=== PATIENT | female | born 1965 | race Caucasian/White ===

== ENCOUNTER 2018-07-18 13:03 | Inpatient (IN) | payer OTHER ==
--- NOTE | 2018-07-18 13:41 | PDOC ---
History of Present Illness - General Chief Complaint: Respiratory Stated Complaint: COUGH Time Seen by Provider: 07/18/18 13:23 History Source: Patient Exam Limitations: No Limitations - History of Present Illness Initial Comments: 07/18/18 14:09 Pt is a 53yo F with PMH of migraine, kidney stone, htn presenting to ED from Dr. Griffiths's office for possible pneumonia. Pt said she started coughing 6 days ago and it has been getting worse. She denies coughing up phlegm. Pt says that she has been coughing so much that she vomited (NBNB) yesterday. She admits to a fever at home of 100.2, chills, cough, shortness of breath, headache. Denies nausea, diarrhea, dysuria, numbness/tingling. Pt says she feels like she is having one of her kidney stones as well. PCP: [facility] Neurologist: Cole PMH: see hpi PSH: cholecystectomy, stent placement for clot in R eye Meds: see med rec Allergies: ndka Social: quit smoking 2 weeks ago (10 cigarettes/day), denies alcohol, illicit drug use Past History - Past Medical History Allergies/Adverse Reactions: Allergies Allergy/AdvReac Type Severity Reaction Status Date / Time No Known Allergies Allergy Verified 07/18/18 13:54 Home Medications: Ambulatory Orders Acetaminophen with Codeine [Acetaminophen-Cod #4 Tablet] 1 each PO PRN 02/27/16 Lubiprostone [Amitiza] 24 mcg PO DAILY 02/27/16 Omeprazole [Prilosec] 40 mg PO DAILY 02/27/16 clonazePAM [KlonoPIN] 1 mg PO BID 02/27/16 Aspirin [Adult Aspirin Regimen] 81 mg PO DAILY 07/18/18 Clopidogrel Bisulfate [Plavix] 75 mg PO DAILY 07/18/18 Gabapentin 300 mg PO HS 07/18/18 Oxycodone HCl/Acetaminophen [Percocet 5-325 mg Tablet] 1 tab PO Q4H PRN MDD 6 Simvastatin 40 mg PO HS 07/18/18 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) COPD: Yes GI Disorders: Yes (ULCERS, POLYPS) Disorders: Yes (UTI, KIDNEY STONES) HTN: Yes 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 - Surgical History Cholecystectomy: Yes Neurologic Surgery: Yes (1 STENT AND 1 COIL IN BRAIN) - Immunization History Immunization Up to Date: Yes - Suicide/Smoking/Psychosocial Hx Smoking Status: Yes Smoking History: Current every day smoker Have you smoked in the past 12 months: Yes Number of Cigarettes Smoked Daily: 10 Information on smoking cessation initiated: Yes 'Breaking Loose' booklet given: 07/18/18 Hx Alcohol Use: No Drug/Substance Use Hx: No Substance Use Type: Cocaine Hx Substance Use Treatment: No *Physical Exam - Vital Signs Last Vital Signs Temp Pulse Resp BP Pulse Ox 99.1 F 112 H 20 115/93 97 07/18/18 13:04 07/18/18 13:04 07/18/18 13:04 07/18/18 13:04 07/18/18 13:04 - Physical Exam Comments: 07/18/18 14:24 Pt coughing in room. General Appearance: Yes: Nourished, Appropriately Dressed, Mild Distress HEENT: positive: EOMI, ADRIANA, Normal ENT Inspection, TMs Normal, Pharynx Normal. negative: Photophobia, Pharyngeal Erythema, Nasal Congestion, Rhinorrhea Neck: positive: Trachea midline, Supple. negative: Lymphadenopathy (R), Lymphadenopathy (L) Respiratory/Chest: positive: Crackles (bilateral lung calderon), Wheezing ( bilateral lung calderon). negative: Lungs Clear, Normal Breath Sounds, Respiratory Distress, Rales, Rhonchi, Stridor Cardiovascular: positive: Regular Rhythm, S1, S2, Tachycardia. negative: JVD, Murmur Vascular Pulses: Dorsalis-Pedis (R): 2+, Doralis-Pedis (L): 2+ Gastrointestinal/Abdominal: positive: Normal Bowel Sounds, Soft. negative: Distended, Guarding, Rebound, Tenderness Musculoskeletal: positive: Normal Inspection. 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 Griffiths's office for possible pneumonia. DDx: PNA v COPD exacerbation. CXR, CBC, CMP, lactate orderd. Pt given Duoneb and O2 07/18/18 15:51 Labs wnl. No elevated wbc. Lactic still not back yet. Pt reported "feeling the same" after duoneb. Will start on abx, give steroids and admit. 07/18/18 15:57 Pt will be admitted obs under Dr. Calderon. *DC/Admit/Observation/Transfer Diagnosis at time of Disposition: COPD exacerbation - Discharge Dispostion Condition at time of disposition: Fair Decision to Admit order: Yes - Referrals - Patient Instructions - Post Discharge Activity
[2018-07-18] MEDS ORDERED: ALBUTEROL SO4 2.5/IPRATROPIUM 0.5 INH SOL 3 ML VIAL.NEB. NEB ONE (14:23)
[2018-07-18] MEDS: ALBUTEROL SO4 2.5/IPRATROPIUM 0.5 INH SOL 3 ML VIAL.NEB. NEB SCH ×2 (14:26→15:10)
[2018-07-18 14:30] LABS: HEMOGLOBIN 14.4 GM/dl (10.7-15.3); MCH 30.5 pg (25.7-33.7); MCHC 32.7 g/dl (32.0-36.0); MEAN CELL VOLUME 93.2 fl (80-96); MEAN PLT VOLUME 9.1 fl (7.5-11.1); PLATELET COUNT 229 K/MM3 (134-434); RBC 4.72 M/mm3 (3.60-5.2); RDW 12.7 % (11.6-15.6); WHITE BLOOD COUNT 6.7 K/mm3 (4.0-10.8)
[2018-07-18 14:36] LABS: ALBUMIN 4.1 g/dl (3.5-5.0); ALK PHOS 77 U/L (32-92); ANION GAP 6 MMOL/L (8-16); BILIRUBIN,TOTAL 0.7 mg/dl (0.2-1.0); BLOOD UREA NITROGEN 9 mg/dl (7-18); CALCIUM 8.5 mg/dl (8.4-10.2); CHLORIDE 103 mmol/L (98-107); CO2 27 mmol/L (22-28); CREATININE 0.6 mg/dl (0.6-1.3); GLUCOSE,RANDOM 93 mg/dl (74-106); POTASSIUM 4.2 mmol/L (3.5-5.1); SGOT/AST 25 U/L (10-42); SGPT/ALT 29 U/L (10-40); SODIUM 136 mmol/L (136-145); TOT PROT 7.1 g/dl (6.4-8.3)
--- NOTE | 2018-07-18 14:40 | PDOC ---
Attending Attestation - Resident Resident Name: Lyudmila Lee - ED Attending Attestation I have performed the following: I have examined & evaluated the patient, The case was reviewed & discussed with the resident, I agree w/resident's findings & plan - HPI HPI: 07/18/18 14:34 53-year-old female with history of migraines, brain aneurysm, chronic smoker currently at half pack per day with history of pneumonia in the past presents with 6 days of worsening URI symptoms of congestion, now with progressive wet cough and chest congestion with dyspnea and wheezing and generalized weakness. Saw Dr. Griffiths in the office today and was referred to the emergency department for suspected pneumonia. No actual chest pain, no fevers or chills or night sweats or foreign travel. - Physicial Exam PE: 07/18/18 14:38 Tachycardia, O2 sat 97% on room air Active coughing, wet but nonproductive Heart is regular, slight tachycardia Lungs have coarse inspiratory breath sounds at both bases, left worse than right. Scattered expiratory wheezing without prolonged expiration, no accessory muscle use. Abdomen benign, no leg edema - Medical Decision Making 07/18/18 14:39 53-year-old female with history of smoking, question asthma/COPD, presents with 6 days of worsening respiratory symptoms, possible pneumonia. Tachycardia but O2 sat and respiratory rate her currently within normal limits Trial of nebulizers, supplemental oxygen Labs, chest x-ray, EKG Likely antibiotics Will monitor and observation given decline in respiratory status 07/18/18 15:45 still coughing, only slightly improved after nebs. bilateral lower haziness without focal opacity on my prelim review of cxr. will proceed with observation, start steroids for bronchitis/copd exacerbation, add pna given likely underlying lung disease and smoking hx. Heart Score/ECG Review #1 ECG reviewed & interpreted by me at: 14:51 General ECG Interpretation: Sinus Rhythm, Normal Rate (102), Normal Intervals ( qtc 469), No acute ischemic changes (isolated q III)
[2018-07-18 15:04] LABS: PLATELET ESTIMATE ADEQUATE
[2018-07-18] MEDS ORDERED: AZITHROMYCIN IVPB 500 MG in DEXTROSE 5%-WATER - 250 ML IVPB ONE (15:43)
[2018-07-18] MEDS ORDERED: methylPREDNISolone NA SUCC 125 MG/2 ML VIAL IVPB ONE (15:43)
[2018-07-18] MEDS ORDERED: CEFTRIAXONE 1,000 MG in DEXTROSE 5%-WATER - 50 ML IVPB ONE (15:43)
[2018-07-18] MEDS ORDERED: ACETAMINOPHEN 325 MG TABLET (FP) PO PRN ×3 (15:57→16:14)
[2018-07-18] MEDS ORDERED: ALBUTEROL SO4 2.5/IPRATROPIUM 0.5 INH SOL 3 ML VIAL.NEB. NEB PRN (16:00)
[2018-07-18] MEDS ORDERED: SODIUM CHLORIDE 1,000 ML IV SCH (16:00)
[2018-07-18] MEDS ORDERED: cefTRIAXone SODIUM 1 GM VIAL ONE (16:00)
[2018-07-18] MEDS ORDERED: AZITHROMYCIN 500 MG VIAL IVPB ONE (16:00)
[2018-07-18] MEDS ORDERED: methylPREDNISolone NA SUCC 125 MG/2 ML VIAL ONE (16:00)
[2018-07-18 20:26] VITALS: BMI 33.1
[2018-07-18] MEDS: ATORVASTATIN CA 20 MG TABLET (FP) PO SCH (21:22)
[2018-07-18] MEDS: clonazePAM 0.5 MG TABLET PO SCH (21:22)
[2018-07-18] MEDS ORDERED: GABAPENTIN 300 MG CAPSULE (FP) PO SCH (22:00)
--- NOTE | 2018-07-18 22:28 | HP ---
CHIEF COMPLAINT: COUGH PCP: Mae HISTORY OF PRESENT ILLNESS: This is a 53 year old female with a significant past medical history of recent smoking cessation, HTN, migraines who presented to the ED with a 6 day history of cough. Occasionally productive with yellow phlegm. Reports fever 102 at home which prompted her to come to the ED. Had chills, none today. + SOB and wheezing. H/o one episode cough a few years ago which was treated with albuterol MDI but no other use of inhaled medications in the past. ER course was notable for: (1) WBC 6.7 (2) active wheezing, tx with solumedrol 125 IVP and duoneb x 2 (3) CXR with RLL infiltrate Recent Travel: [employer] PAST MEDICAL HISTORY: migraine headaches, chronic back pain, kidney stone, HTN, GI ulcer, polyps, retinal artery occlusion/clot PAST SURGICAL HISTORY: brain coil/stent, retinal artery?, 2012 cholecystectomy 2998 Social History: Smokin/2 PPD since age 13, quit 2 weeks ago Alcohol: pt denies Drugs: pt denies Family History: mother age 74, "tumor on her aorta burst" father age 86, Parkinsons sister age 63, not a smoker Allergies No Known Allergies Allergy (Verified 07/18/18 13:54) HOME MEDICATIONS: 3 Medication Instructions Recorded Acetaminophen with Codeine 1 each PO PRN 02/27/16 [Acetaminophen-Cod #4 Tablet] Lubiprostone [Amitiza] 24 mcg PO DAILY 02/27/16 Omeprazole [Prilosec] 40 mg PO DAILY 02/27/16 clonazePAM [KlonoPIN] 1 mg PO BID 02/27/16 Aspirin [Adult Aspirin Regimen] 81 mg PO DAILY 07/18/18 Clopidogrel Bisulfate [Plavix] 75 mg PO DAILY 07/18/18 Gabapentin 150 mg PO HS 07/18/18 Simvastatin 40 mg PO HS 07/18/18 REVIEW OF SYSTEMS CONSTITUTIONAL: Present: fever, chills Absent: diaphoresis, generalized weakness, malaise, loss of appetite, weight change HEENT: Absent: rhinorrhea, nasal congestion, throat pain, throat swelling, difficulty swallowing, mouth swelling, ear pain, eye pain, visual changes CARDIOVASCULAR: Absent: chest pain, syncope, palpitations, irregular heart rate, lightheadedness , peripheral edema RESPIRATORY: Present: cough, shortness of breath Absent: dyspnea with exertion, orthopnea, wheezing, stridor, hemoptysis GASTROINTESTINAL: Absent: abdominal pain, abdominal distension, nausea, vomiting, diarrhea, constipation, melena, hematochezia GENITOURINARY: Absent: dysuria, frequency, urgency, hesitancy, hematuria, flank pain, genital pain MUSCULOSKELETAL: Absent: myalgia, arthralgia, joint swelling, back pain, neck pain SKIN: Absent: rash, itching, pallor HEMATOLOGIC/IMMUNOLOGIC: Absent: easy bleeding, easy bruising, lymphadenopathy, frequent infections ENDOCRINE: Absent: unexplained weight gain, unexplained weight loss, heat intolerance, cold intolerance NEUROLOGIC: Absent: headache, focal weakness or paresthesias, dizziness, unsteady gait, seizure, mental status changes, bladder or bowel incontinence PSYCHIATRIC: Absent: anxiety, depression, suicidal or homicidal ideation, hallucinations. PHYSICAL EXAMINATION Vital Signs - 24 hr 3 07/18/18 07/18/18 07/18/18 13:04 16:39 19:10 Temperature 99.1 F 99.5 F 98.4 F Pulse Rate 112 H 88 Pulse Rate [ 95 H Left Radial] Respiratory 20 16 20 Rate Blood Pressure 115/93 117/71 Blood Pressure 134/78 [Right Arm] O2 Sat by Pulse 97 94 L 97 Oximetry (%) 3 07/18/18 20:00 Temperature 98.4 F Pulse Rate 84 Pulse Rate [ Left Radial] Respiratory 20 Rate Blood Pressure 106/68 Blood Pressure [Right Arm] O2 Sat by Pulse 94 L Oximetry (%) GENERAL: Awake, alert, and fully oriented, in no acute distress. HEAD: Normal with no signs of trauma. EYES: Pupils equal, round and reactive to light, extraocular movements intact, sclera anicteric, conjunctiva clear. No lid lag. EARS, NOSE, THROAT: Ears normal, nares patent, oropharynx clear without exudates. Moist mucous membranes. NECK: Normal range of motion, supple without lymphadenopathy, JVD, or masses. LUNGS: + wheezing and rhonchi all lung calderon. No accessory muscle use. HEART: Regular rate and rhythm, normal S1 and S2 without murmur, rub or gallop. ABDOMEN: Soft, nontender, not distended, normoactive bowel sounds, no guarding, no rebound, no masses. No hepatomegaly or splenomegaly. MUSCULOSKELETAL: Normal range of motion at all joints. No bony deformities or tenderness. No CVA tenderness. UPPER EXTREMITIES: 2+ pulses, warm, well-perfused. No cyanosis. No clubbing. No peripheral edema. LOWER EXTREMITIES: 2+ pulses, warm, well-perfused. No calf tenderness. No peripheral edema. NEUROLOGICAL: Cranial nerves II-XII intact. Normal speech. Normal gait. PSYCHIATRIC: Cooperative. Good eye contact. Appropriate mood and affect. SKIN: Warm, dry, normal turgor, no rashes or lesions noted, normal capillary refill. Laboratory Results - last 24 hr 3 07/18/18 07/18/18 07/18/18 14:13 14:13 14:13 WBC 6.7 RBC 4.72 Hgb 14.4 Hct 44.0 MCV 93.2 MCH 30.5 MCHC 32.7 RDW 12.7 Plt Count 229 MPV 9.1 Absolute Neuts (auto) 4.6 Neutrophils % No Result Required. Neutrophils % (Manual) 63.0 Lymphocytes % No Result Required. Lymphocytes % (Manual) 27.0 Monocytes % (Manual) 9 Eosinophils % (Manual) 1.0 Platelet Estimate Adequate Sodium 136 Potassium 4.2 Chloride 103 Carbon Dioxide 27 Anion Gap 6 L BUN 9 Creatinine 0.6 Creat Clearance w eGFR > 60 Random Glucose 93 Lactic Acid 1.0 Calcium 8.5 Total Bilirubin 0.7 AST 25 ALT 29 Alkaline Phosphatase 77 Total Protein 7.1 Albumin 4.1 ECG sinus tachycardia vent rate 102, QTC [address]/T wave changes Radiology Reports CXR Impression: Right lower lung atelectasis/infiltrate. Correlation recommended Reported By: Roger Campos MD 07/18/18 0106 ASSESSMENT/PLAN: 53yF with PMH migraine headaches, chronic back pain, kidney stone, HTN, GI ulcer , polyps, retinal artery occlusion/clot presented to the ED with cough x 6 days. Pneumonia/ ? COPD exac - cont ceftriaxone and zithromax - cont solumedrol 40mg Q6h for wheezing - cont duonebs standing, albuterol prn - consider pulmonary consult HTN - BP stable, monitor BP and initiate meds as indicated PUD - home prilosec changed to formulary protonix Pain management-migraine/chronic back pain - home T4 changed to oxy while inpatient DVT PPX - heparin deferred for now, reassess if stay exceeds 48h - ambulation encouraged FEN - NS @ 75cc/hr - BMP in am - regular diet Dispo: pt currently requires further observation for management of her emergent condition. Visit type - Emergency Visit Emergency Visit: Yes ED Registration Date: 07/18/18 Care time: The patient presented to the Emergency Department on the above date and was hospitalized for further evaluation of their emergent condition. - New Patient This patient is new to me today: Yes Date on this admission: 07/18/18 - Critical Care Critical Care patient: No Hospitalist Screening - Colonoscopy Questionnaire Colonoscopy Questionnaire: Colonoscopy Questionnaire - Patient: 50 - 75 years old and never had a screening colonoscopy: No History of colon or rectal polyps, or CA: No History of IBD, Crohn's disease or UC: No History of abdominal radiation therapy as a child: No - Relative: 1 with colon or rectal CA, or polyps at age 60 or younger: No Colon or rectal CA diagnosed at age 45 or younger: No Multiple relatives with colon or rectal CA: No - Outcome: Screening Result: Negative Screen
[2018-07-18] MEDS ORDERED: ALBUTEROL SO4 0.083% IH SOL 2.5 MG/3 ML VIAL.NEB. NEB PRN (22:29)
[2018-07-19] MEDS ORDERED: ALBUTEROL SO4 2.5/IPRATROPIUM 0.5 INH SOL 3 ML VIAL.NEB. NEB ONE (00:16)
[2018-07-19] MEDS ORDERED: methylPREDNISolone NA SUCC 40 MG/1 ML VIAL IVPUSH SCH (03:00)
[2018-07-19] MEDS: methylPREDNISolone NA SUCC 40 MG/1 ML VIAL IVPUSH SCH ×4 (03:19→20:42)
[2018-07-19 08:20] LABS: BASO % 0.1 % (0-2.0); EOS % 0.1 % (0-4.5); HEMATOCRIT 43.1 % (32.4-45.2); HEMOGLOBIN 13.8 GM/dl (10.7-15.3); LYMPH % 19.8 % (8-40); MCH 30.1 pg (25.7-33.7); MEAN PLT VOLUME 9.2 fl (7.5-11.1); MONO % 4.4 % (3.8-10.2); NEUT % 75.6 % (42.8-82.8); PLATELET COUNT 216 K/MM3 (134-434); RBC 4.58 M/mm3 (3.60-5.2); RDW 12.9 % (11.6-15.6); WHITE BLOOD COUNT 3.6 K/mm3 (4.0-10.8)
[2018-07-19 08:33] LABS: ANION GAP 9 MMOL/L (8-16); BLOOD UREA NITROGEN 8 mg/dl (7-18); CALCIUM 8.8 mg/dl (8.4-10.2); CHLORIDE 104 mmol/L (98-107); CO2 28 mmol/L (22-28); CREATININE 0.4 mg/dl (0.6-1.3); GLUCOSE,RANDOM 139 mg/dl (74-106); POTASSIUM 4.3 mmol/L (3.5-5.1); SODIUM 141 mmol/L (136-145)
--- NOTE | 2018-07-19 09:33 | PN ---
Physical Exam: SUBJECTIVE: Patient seen and examined, reports lower back pain and moist cough, denies any chest pain OBJECTIVE: patient is a 53 year old female with a significant past medical history of recent smoking cessation, HTN, retinal artery/occulsion, and migraine. Patient was admitted from the emergency department for right lower lobe PNA. Vital Signs Period Temp Pulse Resp BP Sys/Merchant Pulse Ox Last 24 Hr 98.4 F-99.5 F 84-112 16-20 106-146/68-93 93-97 GENERAL: The patient is awake, alert, and fully oriented, in no acute distress. HEAD: Normal with no signs of trauma. EYES: PERRL, extraocular movements intact, sclera anicteric, conjunctiva clear. No ptosis. ENT: Ears normal, nares patent, oropharynx clear without exudates, moist mucous membranes. NECK: Trachea midline, full range of motion, supple. LUNGS: Breath sounds equal, billateral wheezing to bases with rhonchi, clear to apexes, no crackles, no accessory muscle use. HEART: Regular rate and rhythm, S1, S2 without murmur, rub or gallop. ABDOMEN: Soft, nontender, nondistended, normoactive bowel sounds, no guarding, no rebound, no hepatosplenomegaly, no masses. EXTREMITIES: 2+ pulses, warm, well-perfused, no edema. NEUROLOGICAL: Cranial nerves II through XII grossly intact. Normal speech, gait not observed. PSYCH: Normal mood, normal affect. SKIN: Warm, dry, normal turgor, no rashes or lesions noted Laboratory Results - last 24 hr 07/18/18 07/18/18 07/18/18 14:13 14:13 14:13 WBC 6.7 RBC 4.72 Hgb 14.4 Hct 44.0 MCV 93.2 MCH 30.5 MCHC 32.7 RDW 12.7 Plt Count 229 MPV 9.1 Absolute Neuts (auto) 4.6 Neutrophils % No Result Required. Neutrophils % (Manual) 63.0 Lymphocytes % No Result Required. Lymphocytes % (Manual) 27.0 Monocytes % Monocytes % (Manual) 9 Eosinophils % Eosinophils % (Manual) 1.0 Basophils % Platelet Estimate Adequate Sodium 136 Potassium 4.2 Chloride 103 Carbon Dioxide 27 Anion Gap 6 L BUN 9 Creatinine 0.6 Creat Clearance w eGFR > 60 Random Glucose 93 Lactic Acid 1.0 Calcium 8.5 Total Bilirubin 0.7 AST 25 ALT 29 Alkaline Phosphatase 77 Total Protein 7.1 Albumin 4.1 07/19/18 07/19/18 07:33 07:33 WBC 3.6 L RBC 4.58 Hgb 13.8 Hct 43.1 MCV 94.0 MCH 30.1 MCHC 32.0 RDW 12.9 Plt Count 216 MPV 9.2 Absolute Neuts (auto) 2.7 Neutrophils % 75.6 Neutrophils % (Manual) Lymphocytes % 19.8 Lymphocytes % (Manual) Monocytes % 4.4 Monocytes % (Manual) Eosinophils % 0.1 Eosinophils % (Manual) Basophils % 0.1 Platelet Estimate Sodium 141 Potassium 4.3 Chloride 104 Carbon Dioxide 28 Anion Gap 9 BUN 8 Creatinine 0.4 L Creat Clearance w eGFR > 60 Random Glucose 139 H D Lactic Acid Calcium 8.8 Total Bilirubin AST ALT Alkaline Phosphatase Total Protein Albumin Active Medications Generic Name Dose Route Start Last Admin Trade Name Freq PRN Reason Stop Dose Admin Acetaminophen 650 mg 07/18/18 15:57 Tylenol - PO Q4H PRN PAIN LEVEL 1-5 Acetaminophen 650 mg 07/18/18 16:02 Tylenol - PO Q4H PRN FEVER Albuterol Sulfate 1 amp 07/18/18 22:29 07/18/18 22:00 Ventolin 0.083% Nebulizer Soln - NEB 1 amp Q4H PRN Administration SHORT OF BREATH/WHEEZING Albuterol/Ipratropium 1 amp 07/19/18 08:00 Duoneb - NEB RQID ADAM Aspirin 81 mg 07/19/18 10:00 Ecotrin - PO DAILY [facility] Atorvastatin Calcium 20 mg 07/18/18 22:00 07/18/18 21:22 Lipitor - PO 20 mg HS ADAM Administration Clonazepam 1 mg 07/18/18 22:00 07/18/18 21:22 Klonopin - PO 1 mg BID ADAM Administration Clopidogrel Bisulfate 75 mg 07/19/18 10:00 Plavix - PO DAILY [facility] Gabapentin 200 mg 07/18/18 22:46 Neurontin - PO HS ADAM Guaifenesin 10 ml 07/18/18 16:02 Robitussin Dm - PO Q6H PRN COUGH Azithromycin 250 mls @ 250 mls/hr 07/19/18 10:00 Zithromax 500mg Ivpb (Pre-Docked) IVPB DAILY [facility] Ceftriaxone Sodium 1 gm in 50 mls @ 100 mls/hr 07/19/18 10:00 Rocephin 1gm Ivpb (Pre-Docked) IVPB DAILY [facility] Protocol Sodium Chloride 1,000 mls @ 75 mls/hr 07/18/18 16:00 Normal Saline - IV ASDIR ADAM Methylprednisolone Sodium Succinate 40 mg 07/18/18 22:50 07/19/18 03:19 Solu-Medrol - IVPUSH 40 mg Q6H-IV ADAM Administration Non-Formulary Medication 24 mcg 07/19/18 10:00 Lubiprostone [Amitiza] PO DAILY ADAM Oxycodone HCl 5 mg 07/18/18 16:14 Roxicodone - PO Q4H PRN PAIN 6-10 Pantoprazole Sodium 40 mg 07/19/18 10:00 Protonix - PO DAILY ADAM ASSESSMENT/PLAN: 1) pulm Pneumonia COPD exac - continue ceftriaxone and zithromax, urine antigens ordered - cont solumedrol 40mg Q6h, with standing duonebs and albuterol prn and symbicort - appreciate pulmonary input 2) cardiovascular HTN - BP stable, monitor BP and initiate meds as indicated 3) GI PUD - home prilosec changed to formulary protonix 4) MS hronic back pain - continue oxycodone, patient report back pain, no CVA tenderness noted on exam will order CT spiral of abdomen to rule out renal calculi patient does have a past history in addition to UA and urine culture DVT PPX - heparin deferred for now, reassess if stay exceeds 48h - ambulation encouraged FEN - NS @ 75cc/hr - BMP in am - regular diet Dispo: pt currently requires further observation for management of her emergent condition. Visit type - Emergency Visit Emergency Visit: Yes ED Registration Date: 07/19/18 Care time: The patient presented to the Emergency Department on the above date and was hospitalized for further evaluation of their emergent condition. - New Patient This patient is new to me today: No - Critical Care Critical Care patient: No - Discharge Referral Referred to [facility] No
[2018-07-19] MEDS ORDERED: PATIENT'S OWN MEDICATION (NON-FORMULARY) (Lubiprostone [Amitiza] 24 MCG) PO SCH (10:00)
[2018-07-19] MEDS: oxyCODONE HCL 5 MG TABLET PO PRN ×2 (10:30→21:09)
[2018-07-19] MEDS: CEFTRIAXONE 1 GM/50 ML BAG IVPB SCH (10:32)
[2018-07-19] MEDS: ASPIRIN COATED 81 MG TABLET.EC PO SCH (10:35)
[2018-07-19] MEDS: clonazePAM 0.5 MG TABLET PO SCH ×2 (10:36→21:43)
[2018-07-19] MEDS: PANTOPRAZOLE 40 MG TABLET (FP) PO SCH (10:37)
[2018-07-19] MEDS: CLOPIDOGREL BISULFATE 75 MG TABLET (FP) PO SCH (10:37)
[2018-07-19] MEDS: ALBUTEROL SO4 2.5/IPRATROPIUM 0.5 INH SOL 3 ML VIAL.NEB. NEB SCH ×4 (10:39→20:43)
--- NOTE | 2018-07-19 10:43 | EKG ---
Test Reason : Blood Pressure : / mmHG Vent. Rate : 102 BPM Atrial Rate : 102 BPM P-R Int : 128 ms QRS Dur : 082 ms QT Int : 360 ms P-R-T Axes : 054 -03 056 degrees QTc Int : 469 ms SINUS TACHYCARDIA INFERIOR INFARCT , AGE UNDETERMINED ABNORMAL ECG WHEN COMPARED WITH ECG OF 15-MAY-2012 14:45, VENT. RATE HAS INCREASED BY 36 BPM Confirmed by QUINTEN HUMPHREY, JOHN ([id number]) on 07/19/2018 10:43:32 AM Referred By: Hemant Calderon Confirmed By:JOHN SHIPLEY MD
[2018-07-19] MEDS: AZITHROMYCIN IVPB 250 ML IVPB SCH (10:44)
[2018-07-19] MEDS ORDERED: morphine SULFATE 4 MG/ML VIAL IVPB ONE (12:44)
[2018-07-19] MEDS ORDERED: morphine SULFATE 4 MG/ML VIAL ONE (12:46)
[2018-07-19] MEDS: DOCUSATE SODIUM 100 MG CAPSULE (FP) PO SCH ×2 (15:55→21:10)
--- NOTE | 2018-07-19 17:25 | PN ---
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 MIGRAINES PULMONARY NODULES MEDIASTINAL ADENOPATHY LIKELY REACTIVE TOBACCO ABUSE PLAN IV STEROIDS INHALED BRONCHODILATORS O2 ABX MONITOR PEAK FLOW DVT PROPHYLAXIS PFTS OUTPATIENT YEARLY LOW DOSE CHEST CT FOR LUNG CANCER SCREENING DR AVALOS Problem List - Problems (1) Asthmatic bronchitis with acute exacerbation Code(s): J45.901 - UNSPECIFIED ASTHMA WITH (ACUTE) EXACERBATION (2) COPD exacerbation Code(s): J44.1 - CHRONIC OBSTRUCTIVE PULMONARY DISEASE W (ACUTE) EXACERBATION (3) Lung nodule seen on imaging study Code(s): R91.1 - SOLITARY PULMONARY NODULE (4) Migraine Code(s): G43.909 - MIGRAINE, UNSP, NOT INTRACTABLE, WITHOUT STATUS MIGRAINOSUS (5) Brain aneurysm Code(s): I67.1 - CEREBRAL ANEURYSM, NONRUPTURED
[2018-07-19] MEDS: ATORVASTATIN CA 20 MG TABLET (FP) PO SCH (21:09)
[2018-07-19] MEDS: GABAPENTIN 100 MG CAPSULE (FP) PO SCH (21:09)
[2018-07-19] MEDS: BUDESONIDE/FORMETEROL FUMARATE 160/4.5 mcg INHALER IH SCH (21:12)
[2018-07-20] MEDS: methylPREDNISolone NA SUCC 40 MG/1 ML VIAL IVPUSH SCH ×4 (02:11→21:36)
[2018-07-20] MEDS: oxyCODONE HCL 5 MG TABLET PO PRN ×3 (02:12→12:03)
[2018-07-20] MEDS: guaiFENesin/D-METHORPHAN HB 10 ML UNIT-DOSE CUPS PO PRN ×3 (02:40→23:00)
[2018-07-20] MEDS: DOCUSATE SODIUM 100 MG CAPSULE (FP) PO SCH ×3 (06:16→21:37)
--- NOTE | 2018-07-20 07:13 | PN ---
Progress Note, Physician History of Present Illness: PULMONARY ALERT,LESS CONGESTED,C/O BACK PAIN. + COUGH - Current Medication List Current Medications: Active Medications Acetaminophen (Tylenol -) 650 mg PO Q4H PRN PRN Reason: PAIN LEVEL 1-5 Last Admin: 07/20/18 02:12 Dose: 650 mg Acetaminophen (Tylenol -) 650 mg PO Q4H PRN PRN Reason: FEVER Albuterol Sulfate (Ventolin 0.083% Nebulizer Soln -) 1 amp NEB Q4H PRN PRN Reason: SHORT OF BREATH/WHEEZING Last Admin: 07/18/18 22:00 Dose: 1 amp Albuterol/Ipratropium (Duoneb -) 1 amp NEB RQID [facility] Last Admin: 07/19/18 20:43 Dose: 1 amp Aspirin (Ecotrin -) 81 mg PO DAILY [facility] Last Admin: 07/19/18 10:35 Dose: 81 mg Atorvastatin Calcium (Lipitor -) 20 mg PO [facility] Last Admin: 07/19/18 21:09 Dose: 20 mg Budesonide/Formoterol Fumarate (Symbicort 160/4.5mcg -) 2 puff IH BID [facility] Last Admin: 07/19/18 21:12 Dose: 2 puff Clonazepam (Klonopin -) 1 mg PO BID [facility] Last Admin: 07/19/18 21:43 Dose: 1 mg Clopidogrel Bisulfate (Plavix -) 75 mg PO DAILY [facility] Last Admin: 07/19/18 10:37 Dose: 75 mg Docusate Sodium (Colace -) 100 mg PO TID [facility] Last Admin: 07/20/18 06:16 Dose: 100 mg Gabapentin (Neurontin -) 200 mg PO [facility] Last Admin: 07/19/18 21:09 Dose: 200 mg Guaifenesin (Robitussin Dm -) 10 ml PO Q6H PRN PRN Reason: COUGH Last Admin: 07/20/18 02:40 Dose: 10 ml Azithromycin (Zithromax 500mg Ivpb (Pre-Docked)) 250 mls @ 250 mls/hr IVPB DAILY [facility] Last Admin: 07/19/18 10:44 Dose: 250 mls/hr Ceftriaxone Sodium (Rocephin 1gm Ivpb (Pre-Docked)) 1 gm in 50 mls @ 100 mls/ hr IVPB DAILY [facility]; Protocol Last Admin: 07/19/18 10:32 Dose: 100 mls/hr Sodium Chloride (Normal Saline -) 1,000 mls @ 75 mls/hr IV ASDIR [facility] Last Admin: 07/19/18 18:33 Dose: 75 mls/hr Methylprednisolone Sodium Succinate (Solu-Medrol -) 60 mg IVPUSH Q6H-IV [facility] Last Admin: 07/20/18 02:11 Dose: 60 mg Non-Formulary Medication (Lubiprostone [Amitiza]) 24 mcg PO DAILY [facility] Oxycodone HCl (Roxicodone -) 5 mg PO Q4H PRN PRN Reason: PAIN 6-10 Last Admin: 07/20/18 02:12 Dose: 5 mg Pantoprazole Sodium (Protonix -) 40 mg PO DAILY [facility] Last Admin: 07/19/18 10:37 Dose: 40 mg - Objective Vital Signs: Vital Signs Temperature 98.6 F 07/20/18 06:00 Pulse Rate 61 07/20/18 06:00 Respiratory Rate 20 07/20/18 06:00 Blood Pressure 137/71 07/20/18 06:00 O2 Sat by Pulse Oximetry (%) 94 L 07/20/18 06:00 Constitutional: Yes: Well Nourished, Calm Eyes: Yes: WNL HENT: Yes: WNL Neck: Yes: WNL Cardiovascular: Yes: Regular Rate and Rhythm, S1, S2 Respiratory: Yes: Wheezes (SCATTERED ROGELIO WHEEZES) Gastrointestinal: Yes: Normal Bowel Sounds, Soft Extremities: Yes: WNL Edema: No Labs: CBC, BMP Problem List - Problems (1) Asthmatic bronchitis with acute exacerbation Code(s): J45.901 - UNSPECIFIED ASTHMA WITH (ACUTE) EXACERBATION (2) COPD exacerbation Code(s): J44.1 - CHRONIC OBSTRUCTIVE PULMONARY DISEASE W (ACUTE) EXACERBATION (3) Lung nodule seen on imaging study Code(s): R91.1 - SOLITARY PULMONARY NODULE (4) Migraine Code(s): G43.909 - MIGRAINE, UNSP, NOT INTRACTABLE, WITHOUT STATUS MIGRAINOSUS (5) Brain aneurysm Code(s): I67.1 - CEREBRAL ANEURYSM, NONRUPTURED Assessment/Plan IMP ACUTE ASTHMATIC BRONCHITIS LIKE SECONDARY TO URI HYPOXEMIA LIKELY COPD H/O GALLEY HAND ANEURYSM MIGRAINES PULMONARY NODULES MEDIASTINAL ADENOPATHY LIKELY REACTIVE TOBACCO ABUSE PLAN IV STEROIDS SAME DOSE INHALED BRONCHODILATORS O2 ABX MONITOR PEAK FLOW DVT PROPHYLAXIS PFTS OUTPATIENT YEARLY LOW DOSE CHEST CT FOR LUNG CANCER SCREENING DR AVALOS Problem List - Problems (1) Asthmatic bronchitis with acute exacerbation Code(s): J45.901 - UNSPECIFIED ASTHMA WITH (ACUTE) EXACERBATION (2) COPD exacerbation Code(s): J44.1 - CHRONIC OBSTRUCTIVE PULMONARY DISEASE W (ACUTE) EXACERBATION (3) Lung nodule seen on imaging study Code(s): R91.1 - SOLITARY PULMONARY NODULE (4) Migraine Code(s): G43.909 - MIGRAINE, UNSP, NOT INTRACTABLE, WITHOUT STATUS MIGRAINOSUS (5) Brain aneurysm Code(s): I67.1 - CEREBRAL ANEURYSM, NONRUPTURED
[2018-07-20] MEDS: ALBUTEROL SO4 2.5/IPRATROPIUM 0.5 INH SOL 3 ML VIAL.NEB. NEB SCH ×4 (07:42→21:36)
[2018-07-20 08:10] LABS: HEMATOCRIT 38.8 % (32.4-45.2); HEMOGLOBIN 12.8 GM/dl (10.7-15.3); LYMPH % 7.2 % (8-40); MCH 31.1 pg (25.7-33.7); MEAN CELL VOLUME 94.1 fl (80-96); MONO % 2.8 % (3.8-10.2); PLATELET COUNT 228 K/MM3 (134-434); RBC 4.12 M/mm3 (3.60-5.2); RDW 12.5 % (11.6-15.6); WHITE BLOOD COUNT 12.2 K/mm3 (4.0-10.8)
[2018-07-20] MEDS ORDERED: MAGNESIUM HYDROX 2400MG/30ML ORAL SUSPENSION 30 ML CUP PO PRN (08:27)
[2018-07-20 08:29] LABS: ANION GAP 7 MMOL/L (8-16); BLOOD UREA NITROGEN 11 mg/dl (7-18); CALCIUM 8.8 mg/dl (8.4-10.2); CHLORIDE 105 mmol/L (98-107); CO2 26 mmol/L (22-28); CREATININE 0.5 mg/dl (0.6-1.3); GLUCOSE,RANDOM 162 mg/dl (74-106); PHOSPHOROUS 3.1 mg/dl (2.5-4.6); POTASSIUM 4.2 mmol/L (3.5-5.1); SODIUM 138 mmol/L (136-145)
--- NOTE | 2018-07-20 09:47 | PN ---
Physical Exam: SUBJECTIVE: Patient seen and examined, Patient is ambulatory at Bedside, Patient denies any chest pain reports ongoing back pain after coughing OBJECTIVE:patient is a 53 year old female with a significant past medical history of recent smoking cessation, HTN, retinal artery/occulsion, and migraine. Patient was admitted for emergency department for acute COPD exacerbation Vital Signs Period Temp Pulse Resp BP Sys/Merchant Pulse Ox Last 24 Hr 98.1 F-98.8 F 61-98 18-20 116-137/68-93 91-95 GENERAL: The patient is awake, alert, and fully oriented, in no acute distress. HEAD: Normal with no signs of trauma. EYES: PERRL, extraocular movements intact, sclera anicteric, conjunctiva clear. No ptosis. ENT: Ears normal, nares patent, oropharynx clear without exudates, moist mucous membranes. NECK: Trachea midline, full range of motion, supple. LUNGS: Breath sounds equal, clear to auscultation bilaterally to apexes, diminished to base, no wheezes, no crackles, no accessory muscle use. HEART: Regular rate and rhythm, S1, S2 without murmur, rub or gallop. ABDOMEN: Soft, nontender, nondistended, normoactive bowel sounds, no guarding, no rebound, no hepatosplenomegaly, no masses. EXTREMITIES: 2+ pulses, warm, well-perfused, no edema. NEUROLOGICAL: Cranial nerves II through XII grossly intact. Normal speech, gait not observed. PSYCH: Normal mood, normal affect. SKIN: Warm, dry, normal turgor, no rashes or lesions noted Laboratory Results - last 24 hr 07/19/18 07/20/18 07/20/18 07:30 07:16 07:16 WBC 12.2 H RBC 4.12 Hgb 12.8 Hct 38.8 MCV 94.1 MCH 31.1 MCHC 33.0 RDW 12.5 Plt Count 228 MPV 9.0 Absolute Neuts (auto) 11.0 Neutrophils % 90.0 H Lymphocytes % 7.2 L Monocytes % 2.8 L Eosinophils % 0.0 Basophils % 0.0 Sodium 138 Potassium 4.2 Chloride 105 Carbon Dioxide 26 Anion Gap 7 L BUN 11 Creatinine 0.5 L Creat Clearance w eGFR > 60 Random Glucose 162 H Calcium 8.8 Phosphorus 3.1 Magnesium 2.1 2.0 Active Medications Generic Name Dose Route Start Last Admin Trade Name Freq PRN Reason Stop Dose Admin Acetaminophen 650 mg 07/18/18 15:57 07/20/18 02:12 Tylenol - PO 650 mg Q4H PRN Administration PAIN LEVEL 1-5 Acetaminophen 650 mg 07/18/18 16:02 07/20/18 07:43 Tylenol - PO 650 mg Q4H PRN Administration FEVER Albuterol Sulfate 1 amp 07/18/18 22:29 07/18/18 22:00 Ventolin 0.083% Nebulizer Soln - NEB 1 amp Q4H PRN Administration SHORT OF BREATH/WHEEZING Albuterol/Ipratropium 1 amp 07/19/18 08:00 07/20/18 07:42 Duoneb - NEB 1 amp RQID [facility]AM Administration Aspirin 81 mg 07/19/18 10:00 07/19/18 10:35 Ecotrin - PO 81 mg DAILY [facility] Administration Atorvastatin Calcium 20 mg 07/18/18 22:00 07/19/18 21:09 Lipitor - PO 20 mg HS ADAM Administration Budesonide/Formoterol Fumarate 2 puff 07/19/18 22:00 07/19/18 21:12 Symbicort 160/4.5mcg - IH 2 puff BID ADAM Administration Clonazepam 1 mg 07/18/18 22:00 07/19/18 21:43 Klonopin - PO 1 mg BID ADAM Administration Clopidogrel Bisulfate 75 mg 07/19/18 10:00 07/19/18 10:37 Plavix - PO 75 mg DAILY [facility] Administration Docusate Sodium 100 mg 07/19/18 14:00 07/20/18 06:16 Colace - PO 100 mg TID AD[facility] Administration Gabapentin 200 mg 07/18/18 22:46 07/19/18 21:09 Neurontin - PO 200 mg HS ADAM Administration Guaifenesin 10 ml 07/18/18 16:02 07/20/18 07:43 Robitussin Dm - PO 10 ml Q6H PRN Administration COUGH Azithromycin 250 mls @ 250 mls/hr 07/19/18 10:00 07/19/18 10:44 Zithromax 500mg Ivpb (Pre-Docked) IVPB 250 mls/hr DAILY [facility] Administration Ceftriaxone Sodium 1 gm in 50 mls @ 100 mls/hr 07/19/18 10:00 07/19/18 10:32 Rocephin 1gm Ivpb (Pre-Docked) IVPB 100 mls/hr DAILY [facility] Administration Protocol Lactobacillus Acidophilus 1 tab 07/20/18 10:00 Bacid - PO DAILY [facility] Magnesium Hydroxide 30 ml 07/20/18 08:27 Milk Of Magnesia - PO Q8H PRN INDIGESTION Methylprednisolone Sodium Succinate 60 mg 07/19/18 21:00 07/20/18 02:11 Solu-Medrol - IVPUSH 60 mg Q6H-IV ADAM Administration Non-Formulary Medication 24 mcg 07/19/18 10:00 Lubiprostone [Amitiza] PO DAILY [facility] Oxycodone HCl 5 mg 07/18/18 16:14 07/20/18 07:43 Roxicodone - PO 5 mg Q4H PRN Administration PAIN 6-10 Pantoprazole Sodium 40 mg 07/19/18 10:00 07/19/18 10:37 Protonix - PO 40 mg DAILY [facility] Administration Imaging: CT of chest, left basilar atelectasis no evidence of pulmonary masses or acute consolidation stable pulmonary nodularity,mild mediastinal lymphadenopathy as per radiologist Dr Loera CT spiral, Normal CT scan of abdomen and pelvis no evidence of urinary tract calculi obstructive uropathy or acute pathology as per radiologistDr Loera ASSESSMENT/PLAN: 1) pulm COPD exac - continue ceftriaxone and zithromax - cont solumedrol 60mg Q6h, with standing duonebs and albuterol prn and symbicort - pulmonary input consulted and followed 2) cardiovascular HTN - BP stable, monitor BP and initiate meds as indicated 3) GI PUD - home prilosec changed to formulary protonix 4) MS chronic back pain - reports worsening back pain after coughing increase oxycodone to 10mg, DVT PPX - heparin - ambulation encouraged FEN - BMP in am - regular diet Dispo: pt currently requires inpatient admission for management of her emergent condition. Visit type - Emergency Visit Emergency Visit: Yes ED Registration Date: 07/19/18 Care time: The patient presented to the Emergency Department on the above date and was hospitalized for further evaluation of their emergent condition. - New Patient This patient is new to me today: No - Critical Care Critical Care patient: No - Discharge Referral Referred to [facility] Med P.C.: No
[2018-07-20] MEDS ORDERED: PT OWN MED DRAWER 7, Y5N ONE ×2 (10:30→21:24)
--- NOTE | 2018-07-20 10:46 | CONS ---
DATE OF CONSULTATION: 07/19/2018 REFERRING PHYSICIAN: Isabel Medina NP HISTORY OF PRESENT ILLNESS: The patient is a 53-year-old white female with a past medical history of migraines, history of BUSBOY aneurysms status post clipping 2011, longstanding history of tobacco use approximately 3/4 pack per day for greater than 30 years and still smoking, also history of pneumonia, admitted to [facility] with complaint of 6-day history of increasing URI symptoms, chest congestion, cough. Patient states approximately 6 days ago, she developed cough, chest congestion, and wheezing. Patient had a fever. Symptoms continued worsening over the next few days. She went to see Dr. Griffiths in the office on day of admission and was referred to the emergency room. In the ER, she underwent a CT scan of the chest, which revealed no evidence of pneumonia, revealed mild mediastinal adenopathy. She was started on inhaled bronchodilators and steroids, and transferred out to the medical floor. As stated before, she has a history of tobacco use, quit the day prior to admission. There is no history of recent travel. She has no pets at home. She denies any history of COPD or asthma in the past. PAST MEDICAL HISTORY: Again includes migraines, BUSBOY aneurysms status post clipping. 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 REVIEW OF SYSTEMS: Positive for cough. Positive for shortness of breath. Positive for wheezing. Positive for chest congestion. PHYSICAL EXAMINATION: General: The patient is a well-developed, well-nourished female, awake, alert, in no acute distress. Vital signs: She is afebrile, blood pressure is 116/71, respiratory rate is 18, O2 saturation is 91% on room air. HEENT: Head is normocephalic atraumatic. Neck: Supple. Heart: Regular, S1, S2. Chest: Diffuse bilateral wheezes. Abdomen: Soft. Bowel sounds positive. Extremities: No cyanosis or edema. LABORATORIES: WBC is 3.6, hemoglobin 13.8, hematocrit 43.1, platelet count of 216,000. BUN 8, creatinine 0.4. Chest CT again reveals left basal atelectasis, no acute pneumonia or infiltrates or masses. There is stable pulmonary nodule in the left lower lobe, a 5-mm nodule in the right base, and mild mediastinal adenopathy. IMPRESSION: 1. Acute asthmatic bronchitis likely secondary to viral upper respiratory infection. 2. Pulmonary nodules stable. 3. Mild mediastinal adenopathy, likely reactive. 4. History of tobacco abuse. 5. 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 PLAN: IV steroids, inhaled bronchodilators, supplemental O2, monitor peak flow, continue NicoDerm Patch, pain cultures, yearly low-dose chest CT, lung cancer screening, pulmonary function test as outpatient. LUIS AVALOS M.D. [id number]
[2018-07-20] MEDS: LACTOBACILLUS ACIDOPHILUS 1 TABLET PO SCH (10:50)
[2018-07-20] MEDS: clonazePAM 0.5 MG TABLET PO SCH ×2 (10:51→21:35)
[2018-07-20] MEDS: ASPIRIN COATED 81 MG TABLET.EC PO SCH (10:51)
[2018-07-20] MEDS: PANTOPRAZOLE 40 MG TABLET (FP) PO SCH (10:52)
[2018-07-20] MEDS: CEFTRIAXONE 1 GM/50 ML BAG IVPB SCH (10:52)
[2018-07-20] MEDS: CLOPIDOGREL BISULFATE 75 MG TABLET (FP) PO SCH (10:52)
[2018-07-20] MEDS: BUDESONIDE/FORMETEROL FUMARATE 160/4.5 mcg INHALER IH SCH ×2 (10:53→22:12)
[2018-07-20] MEDS: AZITHROMYCIN IVPB 250 ML IVPB SCH (10:53)
[2018-07-20] MEDS ORDERED: ONDANSETRON 4 MG/2 ML VIAL IVPUSH PRN (11:26)
[2018-07-20] MEDS: GABAPENTIN 100 MG CAPSULE (FP) PO SCH (21:36)
[2018-07-20] MEDS: ATORVASTATIN CA 20 MG TABLET (FP) PO SCH (21:37)
[2018-07-21] MEDS: methylPREDNISolone NA SUCC 40 MG/1 ML VIAL IVPUSH SCH ×4 (03:00→21:15)
[2018-07-21] MEDS: DOCUSATE SODIUM 100 MG CAPSULE (FP) PO SCH ×3 (06:13→21:15)
[2018-07-21 07:28] LABS: PH,URINE 6.5 (4.5-8); URINE APPEARANCE Clear; URINE BILIRUBIN Negative (NEGATIVE); URINE COLOR Yellow; URINE GLUCOSE (UA) Trace (NEGATIVE); URINE KETONE Negative (NEGATIVE); URINE LEUK ESTERASE Negative (NEGATIVE); URINE NITRITE Negative (NEGATIVE); URINE PROTEIN Negative (NEGATIVE); URINE UROBILINOGEN 0.2 (0.2-1.0)
--- NOTE | 2018-07-21 07:35 | PN ---
Progress Note, Physician History of Present Illness: PULMONARY ALERT,FEELING BETTER,LESS CONGESTED - Current Medication List Current Medications: Active Medications Acetaminophen (Tylenol -) 650 mg PO Q4H PRN PRN Reason: PAIN LEVEL 1-5 Last Admin: 07/20/18 02:12 Dose: 650 mg Acetaminophen (Tylenol -) 650 mg PO Q4H PRN PRN Reason: FEVER Last Admin: 07/20/18 07:43 Dose: 650 mg Albuterol Sulfate (Ventolin 0.083% Nebulizer Soln -) 1 amp NEB Q4H PRN PRN Reason: SHORT OF BREATH/WHEEZING Last Admin: 07/18/18 22:00 Dose: 1 amp Albuterol/Ipratropium (Duoneb -) 1 amp NEB RQID [facility] Last Admin: 07/20/18 21:36 Dose: 1 amp Aspirin (Ecotrin -) 81 mg PO DAILY [facility] Last Admin: 07/20/18 10:51 Dose: 81 mg Atorvastatin Calcium (Lipitor -) 20 mg PO [facility] Last Admin: 07/20/18 21:37 Dose: 20 mg Budesonide/Formoterol Fumarate (Symbicort 160/4.5mcg -) 2 puff IH BID [facility] Last Admin: 07/20/18 22:12 Dose: 2 puff Clonazepam (Klonopin -) 1 mg PO BID [facility] Last Admin: 07/20/18 21:35 Dose: 1 mg Clopidogrel Bisulfate (Plavix -) 75 mg PO DAILY [facility] Last Admin: 07/20/18 10:52 Dose: 75 mg Docusate Sodium (Colace -) 100 mg PO TID [facility] Last Admin: 07/21/18 06:13 Dose: Not Given Gabapentin (Neurontin -) 200 mg PO [facility] Last Admin: 07/20/18 21:36 Dose: 200 mg Guaifenesin (Robitussin Dm -) 10 ml PO Q6H PRN PRN Reason: COUGH Last Admin: 07/20/18 23:00 Dose: 10 ml Azithromycin (Zithromax 500mg Ivpb (Pre-Docked)) 250 mls @ 250 mls/hr IVPB DAILY [facility] Last Admin: 07/20/18 10:53 Dose: 250 mls/hr Ceftriaxone Sodium (Rocephin 1gm Ivpb (Pre-Docked)) 1 gm in 50 mls @ 100 mls/ hr IVPB DAILY [facility]; Protocol Last Admin: 07/20/18 10:52 Dose: 100 mls/hr Lactobacillus Acidophilus (Bacid -) 1 tab PO DAILY [facility] Last Admin: 07/20/18 10:50 Dose: 1 tab Magnesium Hydroxide (Milk Of Magnesia -) 30 ml PO Q8H PRN PRN Reason: INDIGESTION Methylprednisolone Sodium Succinate (Solu-Medrol -) 60 mg IVPUSH Q6H-IV [facility] Last Admin: 07/21/18 03:00 Dose: 60 mg Non-Formulary Medication (Lubiprostone [Amitiza]) 24 mcg PO DAILY [facility] Ondansetron HCl (Zofran Injection) 4 mg IVPUSH Q8H PRN PRN Reason: NAUSEA Oxycodone HCl (Roxicodone -) 10 mg PO Q4H PRN PRN Reason: PAIN 6-10 Last Admin: 07/20/18 12:03 Dose: 10 mg Pantoprazole Sodium (Protonix -) 40 mg PO DAILY [facility] Last Admin: 07/20/18 10:52 Dose: 40 mg - Objective Vital Signs: Vital Signs Temperature 98.3 F 07/21/18 06:43 Pulse Rate 71 07/21/18 06:43 Respiratory Rate 20 07/21/18 06:43 Blood Pressure 130/70 07/21/18 06:43 O2 Sat by Pulse Oximetry (%) 94 L 07/21/18 06:43 Constitutional: Yes: Well Nourished, Calm Eyes: Yes: WNL HENT: Yes: WNL Neck: Yes: WNL Cardiovascular: Yes: Regular Rate and Rhythm, S1, S2 Respiratory: Yes: Wheezes (LESS WHEEZES BILATERALLY) Gastrointestinal: Yes: Normal Bowel Sounds, Soft Extremities: Yes: WNL Edema: No Labs: CBC, BMP Problem List - Problems (1) Asthmatic bronchitis with acute exacerbation Code(s): J45.901 - UNSPECIFIED ASTHMA WITH (ACUTE) EXACERBATION (2) COPD exacerbation Code(s): J44.1 - CHRONIC OBSTRUCTIVE PULMONARY DISEASE W (ACUTE) EXACERBATION (3) Lung nodule seen on imaging study Code(s): R91.1 - SOLITARY PULMONARY NODULE (4) Migraine Code(s): G43.909 - MIGRAINE, UNSP, NOT INTRACTABLE, WITHOUT STATUS MIGRAINOSUS (5) Brain aneurysm Code(s): I67.1 - CEREBRAL ANEURYSM, NONRUPTURED Assessment/Plan IMP ACUTE ASTHMATIC BRONCHITIS LIKE SECONDARY TO URI HYPOXEMIA LIKELY COPD H/O CORPORATE EVENT PLANNER ANEURYSM MIGRAINES PULMONARY NODULES MEDIASTINAL ADENOPATHY LIKELY REACTIVE TOBACCO ABUSE PLAN STEROID TAPER INHALED BRONCHODILATORS O2 ABX MONITOR PEAK FLOW DVT PROPHYLAXIS PFTS OUTPATIENT YEARLY LOW DOSE CHEST CT FOR LUNG CANCER SCREENING DR AVALOS Problem List - Problems (1) Asthmatic bronchitis with acute exacerbation Code(s): J45.901 - UNSPECIFIED ASTHMA WITH (ACUTE) EXACERBATION (2) COPD exacerbation Code(s): J44.1 - CHRONIC OBSTRUCTIVE PULMONARY DISEASE W (ACUTE) EXACERBATION (3) Lung nodule seen on imaging study Code(s): R91.1 - SOLITARY PULMONARY NODULE (4) Migraine Code(s): G43.909 - MIGRAINE, UNSP, NOT INTRACTABLE, WITHOUT STATUS MIGRAINOSUS (5) Brain aneurysm Code(s): I67.1 - CEREBRAL ANEURYSM, NONRUPTURED
[2018-07-21] MEDS: CEFTRIAXONE 1 GM/50 ML BAG IVPB SCH (09:18)
[2018-07-21] MEDS: ASPIRIN COATED 81 MG TABLET.EC PO SCH (09:18)
[2018-07-21] MEDS: clonazePAM 0.5 MG TABLET PO SCH ×2 (09:18→21:15)
[2018-07-21] MEDS: LACTOBACILLUS ACIDOPHILUS 1 TABLET PO SCH (09:19)
[2018-07-21] MEDS: oxyCODONE HCL 5 MG TABLET PO PRN ×3 (09:19→18:23)
[2018-07-21] MEDS: CLOPIDOGREL BISULFATE 75 MG TABLET (FP) PO SCH (09:19)
[2018-07-21] MEDS: ALBUTEROL SO4 2.5/IPRATROPIUM 0.5 INH SOL 3 ML VIAL.NEB. NEB SCH ×4 (09:20→19:53)
[2018-07-21] MEDS: AZITHROMYCIN IVPB 250 ML IVPB SCH (09:20)
[2018-07-21] MEDS ORDERED: PT OWN MED DRAWER 7, Y5N ONE (09:27)
[2018-07-21] MEDS: BUDESONIDE/FORMETEROL FUMARATE 160/4.5 mcg INHALER IH SCH ×2 (10:00→21:21)
--- NOTE | 2018-07-21 11:52 | PN ---
Physical Exam: SUBJECTIVE: Patient seen and examined, reports breathing feels slightly improved , denies any chest pain or dyspnea upon exertion. OBJECTIVE: patient is a 53 year old female with a significant past medical history of recent smoking cessation, HTN, retinal artery/occulsion, and migraine. Patient was admitted for emergency department for acute COPD exacerbation Vital Signs Period Temp Pulse Resp BP Sys/Merchant Pulse Ox Last 24 Hr 97.5 F-98.9 F 58-71 18-20 124-141/54-85 92-97 GENERAL: The patient is awake, alert, and fully oriented, in no acute distress. HEAD: Normal with no signs of trauma. EYES: PERRL, extraocular movements intact, sclera anicteric, conjunctiva clear. No ptosis. ENT: Ears normal, nares patent, oropharynx clear without exudates, moist mucous membranes. NECK: Trachea midline, full range of motion, supple. LUNGS: Breath sounds equal, clear to auscultation bilaterally to apexes, diminished to base, no wheezes, no crackles, no accessory muscle use. HEART: Regular rate and rhythm, S1, S2 without murmur, rub or gallop. ABDOMEN: Soft, nontender, nondistended, normoactive bowel sounds, no guarding, no rebound, no hepatosplenomegaly, no masses. EXTREMITIES: 2+ pulses, warm, well-perfused, no edema. NEUROLOGICAL: Cranial nerves II through XII grossly intact. Normal speech, gait not observed. PSYCH: Normal mood, normal affect. SKIN: Warm, dry, normal turgor, no rashes or lesions noted Laboratory Results - last 24 hr 07/21/18 06:30 Urine Color Yellow Urine Appearance Clear Urine pH 6.5 Ur Specific Isabella 1.015 Urine Protein Negative Urine Glucose (UA) Trace Urine Ketones Negative Urine Blood Negative Urine Nitrite Negative Urine Bilirubin Negative Urine Urobilinogen 0.2 Ur Leukocyte Esterase Negative Active Medications Generic Name Dose Route Start Last Admin Trade Name Freq PRN Reason Stop Dose Admin Acetaminophen 650 mg 07/18/18 15:57 07/20/18 02:12 Tylenol - PO 650 mg Q4H PRN Administration PAIN LEVEL 1-5 Acetaminophen 650 mg 07/18/18 16:02 07/20/18 07:43 Tylenol - PO 650 mg Q4H PRN Administration FEVER Albuterol Sulfate 1 amp 07/18/18 22:29 07/18/18 22:00 Ventolin 0.083% Nebulizer Soln - NEB 1 amp Q4H PRN Administration SHORT OF BREATH/WHEEZING Albuterol/Ipratropium 1 amp 07/19/18 08:00 07/21/18 09:20 Duoneb - NEB 1 amp RQID ADAM Administration Aspirin 81 mg 07/19/18 10:00 07/21/18 09:18 Ecotrin - PO 81 mg DAILY AADM Administration Atorvastatin Calcium 20 mg 07/18/18 22:00 07/20/18 21:37 Lipitor - PO 20 mg HS ADAM Administration Budesonide/Formoterol Fumarate 2 puff 07/19/18 22:00 07/20/18 22:12 Symbicort 160/4.5mcg - IH 2 puff BID ADAM Administration Clonazepam 1 mg 07/18/18 22:00 07/21/18 09:18 Klonopin - PO 1 mg BID ADAM Administration Clopidogrel Bisulfate 75 mg 07/19/18 10:00 07/21/18 09:19 Plavix - PO 75 mg DAILY ADAM Administration Docusate Sodium 100 mg 07/19/18 14:00 07/21/18 06:13 Colace - PO Not Given TID ADAM Gabapentin 200 mg 07/18/18 22:46 07/20/18 21:36 Neurontin - PO 200 mg HS ADAM Administration Guaifenesin 10 ml 07/18/18 16:02 07/20/18 23:00 Robitussin Dm - PO 10 ml Q6H PRN Administration COUGH Azithromycin 250 mls @ 250 mls/hr 07/19/18 10:00 07/21/18 09:20 Zithromax 500mg Ivpb (Pre-Docked) IVPB 250 mls/hr DAILY ADAM Administration Ceftriaxone Sodium 1 gm in 50 mls @ 100 mls/hr 07/19/18 10:00 07/21/18 09:18 Rocephin 1gm Ivpb (Pre-Docked) IVPB 100 mls/hr DAILY ADAM Administration Protocol Lactobacillus Acidophilus 1 tab 07/20/18 10:00 07/21/18 09:19 Bacid - PO 1 tab DAILY ADAM Administration Magnesium Hydroxide 30 ml 07/20/18 08:27 Milk Of Magnesia - PO Q8H PRN INDIGESTION Methylprednisolone Sodium Succinate 40 mg 07/21/18 11:22 Solu-Medrol - IVPUSH Q6H-IV ADAM Non-Formulary Medication 24 mcg 07/19/18 10:00 Lubiprostone [Amitiza] PO DAILY ADAM Ondansetron HCl 4 mg 07/20/18 11:26 Zofran Injection IVPUSH Q8H PRN NAUSEA Oxycodone HCl 10 mg 07/20/18 11:21 07/21/18 09:19 Roxicodone - PO 10 mg Q4H PRN Administration PAIN 6-10 Pantoprazole Sodium 40 mg 07/19/18 10:00 07/20/18 10:52 Protonix - PO 40 mg DAILY ADAM Administration Microbiology 07/21/18 06:30 Urine - Urine Clean Catch Legionella Antigen - Final, negative 07/21/18 06:30 Urine - Urine Clean Catch Streptococcus pneumoniae Antigen ( M - Final, negative Imaging: CT of chest, left basilar atelectasis no evidence of pulmonary masses or acute consolidation stable pulmonary nodularity,mild mediastinal lymphadenopathy as per radiologist Dr Loera CT spiral, Normal CT scan of abdomen and pelvis no evidence of urinary tract calculi obstructive uropathy or acute pathology as per radiologistDr Loera ASSESSMENT/PLAN: 1) pulm COPD exac - continue ceftriaxone and zithromax - peak flow and pre and post oxygen - decrease solumedrol 40mg Q6h, with standing duonebs and albuterol prn and symbicort - pulmonary input consulted and followed 2) cardiovascular HTN - BP stable, monitor BP and initiate meds as indicated 3) GI PUD - home prilosec changed to formulary protonix 4) MS chronic back pain - reports improvement in back pain, continue oxycodone to 10mg, DVT PPX - heparin - ambulation encouraged FEN - BMP in am - regular diet Dispo: pt currently requires inpatient admission for management of her emergent condition. Visit type - Emergency Visit Emergency Visit: Yes ED Registration Date: 07/19/18 Care time: The patient presented to the Emergency Department on the above date and was hospitalized for further evaluation of their emergent condition. - New Patient This patient is new to me today: No - Critical Care Critical Care patient: No - Discharge Referral Referred to [facility] Med P.C[facility] No
[2018-07-21] MEDS: PANTOPRAZOLE 40 MG TABLET (FP) PO SCH (13:53)
[2018-07-21] MEDS: ATORVASTATIN CA 20 MG TABLET (FP) PO SCH (21:16)
[2018-07-21] MEDS: GABAPENTIN 100 MG CAPSULE (FP) PO SCH (21:16)
[2018-07-21] MEDS: HEPARIN NA (PORCINE) 5,000 UNITS/ML 1ML VIAL SQ SCH (21:20)
[2018-07-22] MEDS: methylPREDNISolone NA SUCC 40 MG/1 ML VIAL IVPUSH SCH ×3 (03:34→14:45)
[2018-07-22] MEDS: DOCUSATE SODIUM 100 MG CAPSULE (FP) PO SCH ×2 (06:24→13:26)
[2018-07-22 08:34] LABS: BASO % 0.1 % (0-2.0); HEMATOCRIT 38.9 % (32.4-45.2); HEMOGLOBIN 12.7 GM/dl (10.7-15.3); LYMPH % 13.6 % (8-40); MCH 30.4 pg (25.7-33.7); MCHC 32.7 g/dl (32.0-36.0); MEAN CELL VOLUME 93.1 fl (80-96); MEAN PLT VOLUME 9.3 fl (7.5-11.1); MONO % 2.6 % (3.8-10.2); NEUT % 83.7 % (42.8-82.8); PLATELET COUNT 239 K/MM3 (134-434); RBC 4.18 M/mm3 (3.60-5.2); WHITE BLOOD COUNT 8.9 K/mm3 (4.0-10.8)
[2018-07-22] MEDS: clonazePAM 0.5 MG TABLET PO SCH (09:20)
[2018-07-22] MEDS: HEPARIN NA (PORCINE) 5,000 UNITS/ML 1ML VIAL SQ SCH (09:21)
[2018-07-22] MEDS: oxyCODONE HCL 5 MG TABLET PO PRN ×2 (09:21→14:46)
[2018-07-22] MEDS: CEFTRIAXONE 1 GM/50 ML BAG IVPB SCH (09:21)
[2018-07-22] MEDS: ASPIRIN COATED 81 MG TABLET.EC PO SCH (09:21)
[2018-07-22] MEDS: AZITHROMYCIN IVPB 250 ML IVPB SCH (09:22)
[2018-07-22] MEDS: BUDESONIDE/FORMETEROL FUMARATE 160/4.5 mcg INHALER IH SCH (09:22)
[2018-07-22] MEDS: CLOPIDOGREL BISULFATE 75 MG TABLET (FP) PO SCH (09:22)
[2018-07-22] MEDS: PANTOPRAZOLE 40 MG TABLET (FP) PO SCH (09:22)
[2018-07-22] MEDS: ALBUTEROL SO4 2.5/IPRATROPIUM 0.5 INH SOL 3 ML VIAL.NEB. NEB SCH ×2 (09:23→13:02)
[2018-07-22] MEDS: LACTOBACILLUS ACIDOPHILUS 1 TABLET PO SCH (09:23)
[2018-07-22 10:25] LABS: ALBUMIN 3.3 g/dl (3.5-5.0); ALK PHOS 57 U/L (32-92); ANION GAP 10 MMOL/L (8-16); BILIRUBIN,TOTAL 0.5 mg/dl (0.2-1.0); BLOOD UREA NITROGEN 13 mg/dl (7-18); CHLORIDE 106 mmol/L (98-107); CO2 26 mmol/L (22-28); CREATININE 0.5 mg/dl (0.6-1.3); GLUCOSE,RANDOM 133 mg/dl (74-106); SGOT/AST 26 U/L (10-42); SGPT/ALT 37 U/L (10-40); SODIUM 142 mmol/L (136-145); TOT PROT 6.1 g/dl (6.4-8.3)
[2018-07-22] MEDS ORDERED: PT OWN MED DRAWER 7, Y5N ONE ×2 (12:51→15:50)
--- NOTE | 2018-07-22 13:11 | DS ---
Physical Exam: SUBJECTIVE: Patient seen and examined at bedside. Feels better, anxious to go home. Lengthy discussion about smoking cessation. OBJECTIVE: Vital Signs Period Temp Pulse Resp BP Sys/Merchant Pulse Ox Last 24 Hr 97 F-98.3 F 60-72 17-19 147-163/64-89 93-93 PHYSICAL EXAM GENERAL: The patient is awake, alert, and fully oriented, in no acute distress. HEAD: Normal with no signs of trauma. EYES: PERRL, extraocular movements intact, sclera anicteric, conjunctiva clear. ENT: Ears normal, nares patent, oropharynx clear without exudates, moist mucous membranes. NECK: Trachea midline, full range of motion, supple. LUNGS: Breath sounds equal, clear to auscultation bilaterally, no wheezes, no crackles, no accessory muscle use. HEART: Regular rate and rhythm, S1, S2 without murmur, rub or gallop. ABDOMEN: Soft, nontender, nondistended, normoactive bowel sounds, no guarding, no rebound, no hepatosplenomegaly, no masses. EXTREMITIES: 2+ pulses, warm, well-perfused, no edema. NEUROLOGICAL: Cranial nerves II through XII grossly intact. Normal speech, gait not observed. PSYCH: Normal mood, normal affect. SKIN: Warm, dry, normal turgor, no rashes or lesions noted. LABS Laboratory Results - last 24 hr 07/22/18 07/22/18 07:40 07:40 WBC 8.9 RBC 4.18 Hgb 12.7 Hct 38.9 MCV 93.1 MCH 30.4 MCHC 32.7 RDW 13.0 Plt Count 239 MPV 9.3 Absolute Neuts (auto) 7.5 Neutrophils % 83.7 H Lymphocytes % 13.6 Monocytes % 2.6 L Eosinophils % 0.0 Basophils % 0.1 Sodium 142 Potassium 4.0 Chloride 106 Carbon Dioxide 26 Anion Gap 10 BUN 13 Creatinine 0.5 L Creat Clearance w eGFR > 60 Random Glucose 133 H Calcium 9.0 Magnesium 2.0 Total Bilirubin 0.5 AST 26 ALT 37 D Alkaline Phosphatase 57 D Total Protein 6.1 L Albumin 3.3 L HOSPITAL COURSE: Date of Admission:07/19/18 Date of Discharge: 07/22/18 Minutes to complete discharge: 35 Discharge Summary Reason For Visit: PNEUMONIA Current Active Problems Asthmatic bronchitis with acute exacerbation (Acute) Brain aneurysm (Acute) COPD exacerbation (Acute) Migraine (Acute) Condition: Improved - Instructions Diet, Activity, Other Instructions: Several prescriptions have been sent to your pharmacy. One is for prednisone ( pills), take as directed and be sure to finish all the medication. A second prescription is for an albuterol/ventolin inhaler. This is your rescue inhaler that you use when you are short of breath. The other prescription is for Atrovent which is an inhaler that you use everyday. It is strongly recommended you follow up with Dr. Griffiths within one week of your discharge. Tell him of your hospital stay and the new medications you are on. You should get outpatient pulmonary function testing. Return to the emergency department for any new or worsening symptoms. Referrals: Gamaliel Griffiths MD [Staff Physician] - Disposition: HOME - Home Medications Comprehensive Discharge Medication List: Ambulatory Orders Acetaminophen with Codeine [Acetaminophen-Cod #4 Tablet] 1 each PO PRN 02/27/16 Lubiprostone [Amitiza] 24 mcg PO DAILY 02/27/16 Omeprazole [Prilosec] 40 mg PO DAILY 02/27/16 clonazePAM [KlonoPIN] 1 mg PO BID 02/27/16 Aspirin [Adult Aspirin Regimen] 81 mg PO DAILY 07/18/18 Clopidogrel Bisulfate [Plavix] 75 mg PO DAILY 07/18/18 Gabapentin 300 mg PO HS 07/18/18 Oxycodone HCl/Acetaminophen [Percocet 5-325 mg Tablet] 1 tab PO Q4H PRN MDD 6 Simvastatin 40 mg PO HS 07/18/18 This patient is new to me today: Yes Date on this admission: 07/22/18 Emergency Visit: Yes ED Registration Date: 07/19/18 Care time: The patient presented to the Emergency Department on the above date and was hospitalized for further evaluation of their emergent condition. Critical Care patient: No - Discharge Referral Referred to [facility] Med [facility] Yes Physician Referral: Gamaliel Wall MD ([facility])
[2018-07-22 14:38] VITALS: BP 143/68; PULSE 73; TEMP 98.8
== END 2018-07-22 16:55 | disposition home or self-care (01) | DRG 194 ==
LOC: FER 13:03 → FM/S 18:17 → OBSVTOIN 07-19 17:12
PROVIDERS: ADMIT Internal Medicine; ATTEND Nurse Practitioner Acute Care
DX: J18.9 Pneumonia, unspecified organism (principal); J44.1 Chronic obstructive pulmonary disease with (acute) exacerbation; J45.901 Unspecified asthma with (acute) exacerbation; J98.11 Atelectasis; I10 Essential (primary) hypertension; G43.909 Migraine, unspecified, not intractable, without status migrainosus; F17.210 Nicotine dependence, cigarettes, uncomplicated; I69.812 Visuospatial deficit and spatial neglect following other cerebrovascular disease; K27.9 Peptic ulcer, site unspecified, unspecified as acute or chronic, without hemorrhage or perforation; M54.5 Low back pain; R09.02 Hypoxemia; R91.8 Other nonspecific abnormal finding of lung field; I67.1 Cerebral aneurysm, nonruptured
CPT/HCPCS: 36415; 71046-TC-FY; 71250-TC; 74176; 80048; 80053; 81003; 83605; 83735; 84100; 85025; 87086; 87899; 93005; 94640; 99283-25; G0378; J1644; J7030; J7620

== ENCOUNTER 2018-08-07 16:50 | Emergency (ER) | payer OTHER ==
--- NOTE | 2018-08-07 17:27 | PDOC ---
Rapid Medical Evaluation Time Seen by Provider: 08/07/18 17:22 Medical Evaluation: Allergies Allergy/AdvReac Type Severity Reaction Status Date / Time No Known Allergies Allergy Verified 07/18/18 13:54 08/07/18 17:22 Patient had a brief in-person assessment of this patient The patient presents with a chief complaint of: elevated blood pressure with headache. States sent from pmd for further evaluation. Recently started on htn medication 2 weeks ago. Pertinent physical findings are: NAD even and unlabored breathing no pedal edema PERRL, EOMI. no drooping in face I have ordered the following: analgesia This patient will proceed to the ED for further evaluation.
[2018-08-07] MEDS ORDERED: ACETAMINOPHEN 325 MG TABLET (FP) PO ONE (17:30)
[2018-08-07 17:38] VITALS: BMI 33.1
--- NOTE | 2018-08-07 17:45 | PDOC ---
History of Present Illness - History of Present Illness Initial Comments: The patient is a 53F with a history of cerebral aneurysm/coil (Plavix), L partial vision loss, who presents from clinic for evaluation of acute HTN to the SBP to 180s with associated L sided headache. The patient denies history of headaches. On arrival to the Emergency Depart the patient was normotensive (130s /80s), nontachycardic, and saturating well on room air. Recently received 'shot in back' for pain Recently started with new BP medication when she started to feel dizzy/ lightheaded. She does not know the name of the BP medication 08/07/18 17:43 <Jay Mast - Last Filed: 08/07/18 19:04> <Blanca Lee - Last Filed: 08/07/18 21:14> - General Chief Complaint: Lightheaded Stated Complaint: PCP SENT/BLOOD PRESSURE PROBLEM Time Seen by Provider: 08/07/18 17:22 Past History - Past Medical History 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) COPD: Yes GI Disorders: Yes (ULCERS, POLYPS) Disorders: Yes (UTI, KIDNEY STONES) HTN: Yes - Surgical History Cholecystectomy: Yes Neurologic Surgery: Yes (1 STENT AND 1 COIL IN BRAIN) - Immunization History Immunization Up to Date: Yes - Suicide/Smoking/Psychosocial Hx Smoking Status: Yes Smoking History: Current every day smoker Have you smoked in the past 12 months: Yes Number of Cigarettes Smoked Daily: 3 Information on smoking cessation initiated: Yes 'Breaking Loose' booklet given: 07/18/18 Hx Alcohol Use: No Drug/Substance Use Hx: No Substance Use Type: Cocaine Hx Substance Use Treatment: No <Jay Mast - Last Filed: 08/07/18 19:04> <Blanca Lee - Last Filed: 08/07/18 21:14> - Past Medical History Allergies/Adverse Reactions: Allergies Allergy/AdvReac Type Severity Reaction Status Date / Time No Known Allergies Allergy Verified 08/07/18 17:23 Home Medications: Ambulatory Orders Lubiprostone [Amitiza] 24 mcg PO DAILY 02/27/16 Omeprazole [Prilosec] 40 mg PO DAILY 02/27/16 clonazePAM [KlonoPIN] 0.5 mg PO BID 02/27/16 Aspirin [Adult Aspirin Regimen] 81 mg PO DAILY 07/18/18 Clopidogrel Bisulfate [Plavix] 75 mg PO DAILY 07/18/18 Gabapentin 300 mg PO HS 07/18/18 Simvastatin 40 mg PO HS 07/18/18 Albuterol Sulfate Inhaler - [Ventolin HFA Inhaler -] 2 inh PO Q4H PRN 30 Days # 1 inh 07/22/18 Ipratropium [place] [Atrovent Hfa] 2 puff IH BID 30 Days #1 hfa.aer.ad 07/22/18 Lisinopril 10 mg PO DAILY 08/07/18 Review of Systems - Review of Systems Able to Perform ROS?: Yes Comments:: GENERAL/CONSTITUTIONAL: No fever or chills. No weakness HEAD, EYES, EARS, NOSE AND THROAT: No acute change in vision. No ear pain or discharge. No sore throat CARDIOVASCULAR: No chest pain or shortness of breath RESPIRATORY: No cough, wheezing, or hemoptysis GASTROINTESTINAL: No nausea, vomiting, diarrhea or constipation GENITOURINARY: No dysuria, frequency, or change in urination MUSCULOSKELETAL: Chronic back pain. No joint or muscle swelling or pain SKIN: No rash NEUROLOGIC: No vertigo, loss of consciousness, or change in strength/sensation ENDOCRINE: No increased thirst. No abnormal weight change HEMATOLOGIC/LYMPHATIC: No anemia, easy bleeding, or history of blood clots ALLERGIC/IMMUNOLOGIC: No hives or skin allergy 08/07/18 18:54 Is the patient limited Pashto proficient: No <Jay Mast - Last Filed: 08/07/18 19:04> *Physical Exam - Vital Signs Last Vital Signs Temp Pulse Resp BP Pulse Ox 99.1 F 102 H 18 122/66 99 08/07/18 17:25 08/07/18 17:25 08/07/18 17:25 08/07/18 17:25 08/07/18 17:25 - Physical Exam Comments: GENERAL: Awake, alert, and fully oriented, in no acute distress HEAD: No signs of trauma, normocephalic, atraumatic EYES: PERRLA, EOMI, vision grossly intact, decreased vision with L lateral field , sclera anicteric, conjunctiva clear ENT: Auricles normal inspection, hearing grossly normal, nares patent, oropharynx clear without exudates. Moist mucosa NECK: Normal ROM, supple, no lymphadenopathy LUNGS: No distress, speaks full sentences, clear to auscultation bilaterally HEART:Regular rate and rhythm, normal S1 and S2, no murmurs appreciated, peripheral pulses normal and equal bilaterally ABDOMEN: Soft, nontender, normoactive bowel sounds. No guarding, no rebound EXTREMITIES : Normal inspection, Normal range of motion, 1+ BLE edema. No clubbing or cyanosis NEUROLOGICAL: Cranial nerves II through XII grossly intact. Normal speech, normal gait, no focal sensorimotor deficits SKIN: Warm, Dry, normal turgor, no rashes or lesions noted 08/07/18 18:53 <Jay Mast - Last Filed: 08/07/18 19:04> - Vital Signs Last Vital Signs Temp Pulse Resp BP Pulse Ox 98.2 F 92 H 20 134/80 96 08/07/18 19:10 08/07/18 19:10 08/07/18 19:10 08/07/18 19:10 08/07/18 19:10 <Blanca Lee - Last Filed: 08/07/18 21:14> ED Treatment Course - LABORATORY CBC & Chemistry Diagram: 08/07/18 18:11 08/07/18 18:11 <Jay Mast - Last Filed: 08/07/18 19:04> - LABORATORY CBC & Chemistry Diagram: 08/07/18 18:11 08/07/18 18:53 - ADDITIONAL ORDERS Additional order review: Laboratory Results 08/07/18 08/07/18 08/07/18 18:53 18:11 18:11 Sodium 147 H Cancelled Potassium 4.1 Cancelled Chloride 110 H Cancelled Carbon Dioxide 27 Cancelled Anion Gap 10 Cancelled BUN 13 Cancelled Creatinine 0.6 Cancelled Creat Clearance w eGFR > 60 Cancelled Random Glucose 108 H Cancelled Calcium 9.1 Cancelled Total Bilirubin 0.3 Cancelled AST 17 Cancelled ALT 33 Cancelled Alkaline Phosphatase 87 Cancelled Total Protein 7.3 Cancelled Albumin 3.9 Cancelled Urine Color Dkyellow Urine Appearance Cloudy Urine pH 5.0 Ur Specific [place] 1.028 Urine Protein 1+ H Urine Glucose (UA) Negative Urine Ketones Trace H Urine Blood Negative Urine Nitrite Negative Urine Bilirubin Negative Urine Urobilinogen 2.0 H Ur Leukocyte Esterase Trace Urine WBC (Auto) 3 Urine RBC (Auto) 3 Ur Epithelial Cells Few Urine Mucus Many 08/07/18 18:11 RBC 4.55 MCV 92.3 MCHC 32.8 RDW 13.9 MPV 8.8 - Medications Given in the ED: ED Medications Discontinued Medications Generic Name Dose Route Start Last Admin Trade Name Ernesto PRN Reason Stop Dose Admin Acetaminophen 650 mg 08/07/18 17:30 08/07/18 18:05 Tylenol - PO 08/07/18 17:31 650 mg ONCE ONE Administration <Blanca Lee - Last Filed: 08/07/18 21:14> Medical Decision Making - Medical Decision Making The patient is a 53F with a history of HTN, L partial vision loss, and L sided aneurysm who presents from clinic for evaluation of HTN and JONES. Ddx: HTN urgency, JONES, recent BP change, CVA ED Course CMP, CBC, UA ECG CT Head w/o contrast for evaluation of bleed No leukocytosis Dispo pending CT UA with trace LE, no dsyuria, not likely UTI 08/07/18 18:42 Patient signed out to Dr. Camarena, patient presentation, care, and plan to this point discussed and all questions answered 08/07/18 19:04 <Jay Mast - Last Filed: 08/07/18 19:04> *DC/Admit/Observation/Transfer <Jay Mast - Last Filed: 08/07/18 19:04> <Blanca Lee - Last Filed: 08/07/18 21:14> Diagnosis at time of Disposition: Headache Qualifiers: Headache type: unspecified Headache chronicity pattern: unspecified pattern Intractability: not intractable Qualified Code(s): R51 - Headache - Discharge Dispostion Disposition: HOME Condition at time of disposition: Stable - Referrals Referrals: Gamaliel Griffiths MD [Primary Care Provider] - - Patient Instructions Printed Discharge Instructions: DI for Headache Additional Instructions: Follow up with your physician - Post Discharge Activity
[2018-08-07] MEDS ORDERED: ACETAMINOPHEN 325 MG TABLET (FP) ONE (18:18)
[2018-08-07 18:24] LABS: HEMOGLOBIN 13.8 GM/dL (10.7-15.3); MCH 30.2 pg (25.7-33.7); MCHC 32.8 g/dl (32.0-36.0); MEAN CELL VOLUME 92.3 fl (80-96); MEAN PLT VOLUME 8.8 fl (7.5-11.1); PLATELET COUNT 235 K/MM3 (134-434); RBC 4.55 M/mm3 (3.60-5.2); RDW 13.9 % (11.6-15.6)
[2018-08-07 18:26] LABS: URINE APPEARANCE CLOUDY; URINE BILIRUBIN NEGATIVE (<2.0 mg/dL); URINE COLOR DKYELLOW; URINE GLUCOSE (UA) NEGATIVE (NEGATIVE); URINE KETONE TRACE (NEGATIVE); URINE LEUK ESTERASE TRACE (NEGATIVE); URINE NITRITE NEGATIVE (NEGATIVE)
[2018-08-07 18:40] LABS: URINE PROTEIN 1+ (NEGATIVE)
[2018-08-07 18:41] LABS: EPI CELLS FEW /HPF (FEW); URINE MUCUS MANY
--- NOTE | 2018-08-07 18:45 | PDOC ---
Attending Attestation - Resident Resident Name: Jay Mast - ED Attending Attestation I have performed the following: I have examined & evaluated the patient, The case was reviewed & discussed with the resident, I agree w/resident's findings & plan, Exceptions are as noted - HPI HPI: 08/07/18 18:44 33-year-old female presented to the emergency department because of lightheadedness today. She has a significant past medical history of having a brain aneurysm with a stent and coil done. She recently was started on a new blood pressure medication and was seen by her pain doctor today received a shot to her back - Physicial Exam PE: 08/07/18 18:45 53-year-old female, standing up next to her bed, stating that she has some lightheadedness today and became concerned because she's had a history of brain aneurysm in the past. Head normocephalic, atraumatic. eyes eomi Neck no JVD or bruits appreciated, supple lungs cta b/l cvs [id number] ext no erythema,no deformities skin warm and dry neuro axox3,ambulatory psych appropriate - Medical Decision Making 08/07/18 18:[address] head 08/07/18 21:09 CAT scan of the head impression No CT evidence of acute intracranial pathology Left cavernous/ supraclonoid internal carotid artery stent in place Prior Studies. Paranasal Sinus Disease. Since Her Cranial MRI 2016. there has been an Interval Development of Some Moderate Mucosal Thickening Is Seen in the Right Maxillary Sinus Consistent with Sinusitis, Which May Be Acute or chronic labs reviewed pt is ambulating with ease and asymptomatic at thsi time imp headache
[2018-08-07 19:50] LABS: ALBUMIN 3.9 g/dl (3.4-5.0); ANION GAP 10 MMOL/L (8-16); BILIRUBIN,TOTAL 0.3 mg/dL (0.2-1); BLOOD UREA NITROGEN 13 mg/dL (7-18); CALCIUM 9.1 mg/dL (8.5-10.1); CHLORIDE 110 mmol/L (98-107); CO2 27 mmol/L (21-32); CREATININE 0.6 mg/dL (0.55-1.3); GLUCOSE,RANDOM 108 mg/dL (74-106); POTASSIUM 4.1 mmol/L (3.5-5.1); SGOT/AST 17 U/L (15-37); SGPT/ALT 33 U/L (13-61); SODIUM 147 mmol/L (136-145); TOT PROT 7.3 g/dl (6.4-8.2)
[2018-08-07 19:51] LABS: ALK PHOS 87 U/L (45-117)
[2018-08-07 20:45] VITALS: BP 134/80; PULSE 92; TEMP 98.2
[2018-08-07] MEDS ORDERED: clonazePAM 0.5 MG TABLET PO ONE (21:18)
[2018-08-07] MEDS ORDERED: clonazePAM 0.5 MG TABLET ONE (21:21)
--- NOTE | 2018-08-08 16:44 | EKG ---
Test Reason : Blood Pressure : / mmHG Vent. Rate : 090 BPM Atrial Rate : 090 BPM P-R Int : 136 ms QRS Dur : 074 ms QT Int : 380 ms P-R-T Axes : 044 -13 038 degrees QTc Int : 464 ms NORMAL SINUS RHYTHM NORMAL ECG WHEN COMPARED WITH ECG OF 18-JUL-2018 14:51, NO SIGNIFICANT CHANGE WAS FOUND Confirmed by Geovani Anderson ([id number]) on 08/08/2018 4:43:43 PM Referred By: Confirmed By:Geovani Anderson
== END 2018-08-07 21:19 | disposition home or self-care (01) ==
LOC: JER 16:50
DX: R51 Headache (principal); I10 Essential (primary) hypertension; H54.7 Unspecified visual loss; Z87.440 Personal history of urinary (tract) infections; Z86.73 Personal history of transient ischemic attack (TIA), and cerebral infarction without residual deficits; J44.9 Chronic obstructive pulmonary disease, unspecified; F17.210 Nicotine dependence, cigarettes, uncomplicated
CPT/HCPCS: 36415; 70450-TC; 80053; 81003; 81015; 85027; 93005; 93010; 99285-25

== ENCOUNTER 2019-03-15 13:57 | Emergency (ER) | payer OTHER ==
[2019-03-15 14:11] VITALS: BMI 30.4
[2019-03-15] MEDS ORDERED: METOCLOPRAMIDE HCL INJECTION 10 MG/2 ML VIAL IVPUSH ONE (14:33)
[2019-03-15] MEDS ORDERED: SODIUM CHLORIDE 1,000 ML IV ONE (14:33)
[2019-03-15] MEDS ORDERED: METOCLOPRAMIDE HCL INJECTION 10 MG/2 ML VIAL ONE (14:57)
[2019-03-15 15:03] LABS: BASO % 0.7 % (0-2.0); EOS % 1.6 % (0-4.5); HEMATOCRIT 37.8 % (32.4-45.2); HEMOGLOBIN 12.7 GM/dl (10.7-15.3); MCH 31.8 pg (25.7-33.7); MCHC 33.5 g/dl (32.0-36.0); MEAN CELL VOLUME 94.8 fl (80-96); MEAN PLT VOLUME 9.2 fl (7.5-11.1); MONO % 4.9 % (3.8-10.2); NEUT % 62.8 % (42.8-82.8); PLATELET COUNT 233 K/MM3 (134-434); RBC 3.99 M/mm3 (3.60-5.2); RDW 13.2 % (11.6-15.6)
[2019-03-15 15:47] VITALS: BP 112/61; PULSE 63; TEMP 98.3
[2019-03-15 16:35] LABS: ALBUMIN 3.8 g/dl (3.4-5.0); ALK PHOS 70 U/L (45-117); ANION GAP 6 MMOL/L (8-16); BILIRUBIN,TOTAL 0.5 mg/dl (0.2-1); BLOOD UREA NITROGEN 13 mg/dl (7-18); CALCIUM 8.3 mg/dl (8.5-10); CHLORIDE 111 mmol/L (98-107); CO2 22 mmol/L (21-32); GLUCOSE,RANDOM 121 mg/dl (74-106); POTASSIUM 3.8 mmol/L (3.5-5.1); SGOT/AST 18 U/L (15-37); SGPT/ALT 16 U/L (13-61); SODIUM 139 mmol/L (136-145)
[2019-03-15 16:36] LABS: CREATININE < 0.6 mg/dl (0.55-1.3)
--- NOTE | 2019-03-15 17:02 | PDOC ---
Documentation entered by Cat Espinal SCRIBE, acting as scribe for Seferino Nails MD. Seferino Nails MD: This documentation has been prepared by the haroonibeTeddy Lincy, SCRIBE, under my direction and personally reviewed by me in its entirety. I confirm that the documentation accurately reflects all work, treatment, procedures, and medical decision making performed by me. History of Present Illness - General Chief Complaint: Headache Stated Complaint: RIGHT SIDE OF HEADACHE FOR 1 MONTH Time Seen by Provider: 03/15/19 14:24 History Source: Patient Exam Limitations: No Limitations - History of Present Illness Initial Comments: 03/15/19 15:46 The patient is a 53-year-old female with a past medical history significant for hx of migraines, chronic back pain, hx of kidney stone, HTN, GI ulcer, polyps, cerebral aneurysm/coil, L partial vision loss presents to the emergency department with a headache. The patient presents with 3 months of constant right headache, thats worse on the right side. The patient reports the pain is constant and pounding in nature, thats aggravated with light and during night time. The patient reports associated symptoms some shadows and occasional blurriness on her R eye, with diffuse weakness to the whole body, nausea . The patient reports a history of left-sided cerebral aneurysm s/p coil. The patient states she was seen at [facility] ER for a lip infection, secondary to hx of aneurysm she had an MRI done. The patient isnt sure of the result. The patient reports she was dx with cluster JONES by the ER physician. Denies numbness , tingling, fever, cough, chest pain or SOB. Allergies: NKDA Social history: Current smoker, hx of coacine use, no alcohol use reported Surgical history: cholecystectomy and brain coil/stent, retinal artery?, 2011 PCP: Dr. Griffiths. Neurology: Dr. Burgos (last follow up was about a year ago, denies recent follow up secondary to insurance issues. Past History - Past Medical History Allergies/Adverse Reactions: Allergies Allergy/AdvReac Type Severity Reaction Status Date / Time No Known Allergies Allergy Verified 03/15/19 13:58 Home Medications: Ambulatory Orders Lubiprostone [Amitiza] 8 mcg PO BID 02/27/16 Omeprazole [Prilosec] 40 mg PO DAILY 02/27/16 clonazePAM [KlonoPIN] 1 mg PO BID 02/27/16 Gabapentin 100 mg PO TID 07/18/18 Simvastatin 40 mg PO HS 07/18/18 Ipratropium [place] [Atrovent Hfa] 2 puff IH BID 30 Days #1 hfa.aer.ad 07/22/18 Acetaminophen with Codeine [Acetaminophen-Cod #4 Tablet] 1 tab PO PRN 03/15/19 Aspirin 81 mg PO DAILY 03/15/19 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) COPD: Yes DVT: No GI Disorders: Yes (ULCERS, POLYPS) Disorders: Yes (UTI, KIDNEY STONES) HTN: Yes Other medical history: PNEUMONIA - Surgical History Cholecystectomy: Yes Neurologic Surgery: Yes (1 STENT AND 1 COIL IN BRAIN) - Immunization History Immunization Up to Date: Yes - Suicide/Smoking/Psychosocial Hx Smoking Status: Yes Smoking History: Current every day smoker Have you smoked in the past 12 months: Yes Number of Cigarettes Smoked Daily: 15 Information on smoking cessation initiated: Yes 'Breaking Loose' booklet given: 07/18/18 Hx Alcohol Use: No Drug/Substance Use Hx: No Substance Use Type: Cocaine Hx Substance Use Treatment: No Review of Systems - Review of Systems Able to Perform ROS?: Yes Comments:: 03/15/19 15:47 Constitutional - +weakness, Denies fever, chills. HEENT: + right eye blurriness and photophobia. No sore throat Respiratory: Denies cough, sob, hemoptysis Cardiac: denies chest pain, palpitations, lightheadedness, leg swelling Abd/GI: +nausea, denies abd pain, vomiting, blood per rectum, melena, diarrhea : denies dysuria, frequency, discharge Musculskelatal - denies back pain, joint swelling skin - denies bruising, erythema, rash neurological: +headache. Denies numbness, focal weakness, tingling, ataxia, weakness hematologic: denies anemia, easy bruising, easy bleeding *Physical Exam - Vital Signs Last Vital Signs Temp Pulse Resp BP Pulse Ox 97.9 F 72 16 123/75 99 03/15/19 13:58 03/15/19 13:58 03/15/19 13:58 03/15/19 13:58 03/15/19 13:58 - Physical Exam Comments: 03/15/19 15:54 "GENERAL: The patient is awake, alert, and fully oriented, Nontoxic - in no acute distress. HEAD: Normocephalic, atraumatic. EYES: extraocular movements intact, sclera anicteric, conjunctiva clear. ENT: Normal voice, Moist mucous membranes. NECK: Normal range of motion, supple LUNGS: Breath sounds equal, clear to auscultation bilaterally. No wheezes, no rhonchi, no rales. HEART: Regular rate and rhythm, without murmur, rub or gallop. ABDOMEN: Soft, nontender, No guarding, no rebound.No CVA tenderness EXTREMITIES: Normal range of motion, no edema. No cyanosis. No erythema, or tenderness. PSYCH: Normal mood, normal affect. SKIN: Warm, Dry, normal turgor. NEURO: Mental status: The patient is oriented x3. Cranial nerves: Cranial nerves II through XII are intact Motor: The upper extremities are 5 over 5 in all muscle groups. The lower extremities are 5 over 5 in all muscle groups. No pronator drift. Sensation: Sensation is intact to light touch throughout. Neg romberg Cerebellar: [id number] is normal in both upper extremities. Heel-knee- santamaria is normal in both lower extremities. Reflexes: 2+ and symmetric in the upper and lower extremities. Gait: Normal. Heel and toe walking are normal. Tandem gait is normal." ED Treatment Course - LABORATORY CBC & Chemistry Diagram: 03/15/19 14:53 03/15/19 15:45 Medical Decision Making - Medical Decision Making 03/15/19 14:46 50y F hx of htn, past CVA, COPD, renal colic presents to the ED with several months of R sided pounding headache associated with some visual changes/ fashing. endorses photophobia, mild nausea. Went to [facility] 1-2 months ago and had a MRI and was dx with cluster headaches. pt well appaering, in no distress neuro exam unremarkble suspect migraine h/a will give reglan, fluids 03/15/19 15:18 A call placed to [facility] ER, spoke with an ER physician at 2:47 pm. The physician reports she had a CT head and MRI and was normal. 03/15/19 16:42 labs reviewed pt feeling improved with complete resolution of headache and other symptmos. 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 Make sure you are getting adaqute sleep and hydration. You MUST call and follow up with your doctor or neurologist within 4-5 days for further evaluation of your symptoms. Your emergency department visit is not complete without a followup with your doctor for reevaluation. Results were discussed with you. Please make sure your doctor reviews the results of your emergency evaluation. Print Language: SOUTH AFRICAN - Post Discharge Activity
== END 2019-03-15 16:50 | disposition home or self-care (01) ==
LOC: FER 13:57
PROC: 3E033GC Introduction of Other Therapeutic Substance into Peripheral Vein, Percutaneous Approach (ICD-10-PCS; principal; 2019-03-15)
PROC: 3E0337Z Introduction of Electrolytic and Water Balance Substance into Peripheral Vein, Percutaneous Approach (ICD-10-PCS; 2019-03-15)
DX: G44.51 Hemicrania continua (principal); J44.9 Chronic obstructive pulmonary disease, unspecified; N23 Unspecified renal colic; Z86.73 Personal history of transient ischemic attack (TIA), and cerebral infarction without residual deficits
CPT/HCPCS: 36415; 80053; 85025; 99282-25; J7030

== ENCOUNTER 2022-05-17 04:06 | Day surgery (SDC) | payer OTHER ==
[2022-05-12 14:50] VITALS: BMI 32.2
[2022-05-17] MEDS ORDERED: LIDOCAINE HCL/PF 1% SDV 5ML VIAL ONE (10:04)
[2022-05-17] MEDS ORDERED: BUPIVACAINE HCL/PF 0.25% (2.5MG/ML) 10 ML VIAL ONE (10:04)
[2022-05-17] MEDS ORDERED: DEXAMETHASONE SOD PHOSPHATE 10 MG/1 ML VIAL ONE ×2 (10:04→10:43)
[2022-05-17] MEDS ORDERED: MIDAZOLAM HCL 2 MG/2 ML SINGLE DOSE VIAL ONE ×2 (10:38)
[2022-05-17] MEDS ORDERED: IOHEXOL 180 MG/1 ML ML IJ ONE (10:43)
[2022-05-17] MEDS ORDERED: LIDOCAINE HCL 1% PRESERVATIVE FREE - 30ML VIAL IJ ONE (10:43)
[2022-05-17] MEDS ORDERED: DEXAMETHASONE SOD PHOSPHATE 10 MG/1 ML VIAL IVPUSH ONE (10:47)
[2022-05-17] MEDS ORDERED: BUPIVACAINE HCL/PF 0.25% (2.5MG/ML) 10 ML VIAL IJ ONE (10:47)
[2022-05-17 11:47] VITALS: BP 124/59; PULSE 91; TEMP 98.1
== END 2022-05-17 11:50 | disposition home or self-care (01) ==
LOC: JASU-SURG 04:06
PROVIDERS: ATTEND Physical Medicine & Rehabilitation
PROC: 3E0R33Z Introduction of Anti-inflammatory into Spinal Canal, Percutaneous Approach (ICD-10-PCS; 2022-05-17)
PROC: B01BYZZ Fluoroscopy of Spinal Cord using Other Contrast (ICD-10-PCS; 2022-05-17)
PROC: 3E0R3BZ Introduction of Anesthetic Agent into Spinal Canal, Percutaneous Approach (ICD-10-PCS; principal; 2022-05-17 09:30)
DX: M54.16 Radiculopathy, lumbar region (principal); M54.50 Low back pain, unspecified; I10 Essential (primary) hypertension
CPT/HCPCS: 76000-TC-FY; J1100

== ENCOUNTER 2023-01-21 12:14 | Observation (INO) | payer OTHER ==
[2023-01-21] MEDS ORDERED: DEXAMETHASONE SOD PHOSPHATE 10 MG/1 ML VIAL IVPUSH ONE (13:19)
[2023-01-21] MEDS ORDERED: ALBUTEROL SO4 2.5/IPRATROPIUM 0.5 INH SOL 3 ML VIAL.NEB. NEB ONE (14:16)
[2023-01-21] MEDS ORDERED: DEXAMETHASONE SOD PHOSPHATE 10 MG/1 ML VIAL ONE (14:16)
[2023-01-21] MEDS: ALBUTEROL SO4 2.5/IPRATROPIUM 0.5 INH SOL 3 ML VIAL.NEB. NEB SCH (14:59)
[2023-01-21 15:07] LABS: BASO % 0.9 % (0-2.0); EOS % 3.7 % (0-4.5); HEMATOCRIT 39.2 % (32.4-45.2); HEMOGLOBIN 12.7 GM/dL (10.7-15.3); LYMPH % 24.1 % (8-40); MCH 29.1 pg (25.7-33.7); MCHC 32.4 g/dl (32.0-36.0); MEAN CELL VOLUME 89.7 fl (80-96); MEAN PLT VOLUME 8.9 fl (7.5-11.1); MONO % 11.8 % (3.8-10.2); NEUT % 59.5 % (42.8-82.8); PLATELET COUNT 237 10^3/uL (134-434); RBC 4.37 M/mm3 (3.60-5.2); RDW 13.2 % (11.6-15.6); WHITE BLOOD COUNT 5.6 K/mm3 (4.0-10.0)
[2023-01-21 15:15] LABS: INR 1.01 (0.83-1.09); PROTHROMBIN TIME (PATIENT) 11.7 SEC (9.7-13.0)
[2023-01-21 15:18] LABS: ACTIVATED PTT 27.2 SECONDS (25.2-36.5)
[2023-01-21 15:41] LABS: CALCIUM 9.1 mg/dL (8.5-10.1)
[2023-01-21 15:42] LABS: VENOUS BASE EXCESS 1.8 mmol/L (-2-2); VENOUS O2 SATURATION 73.2 % (70-80); VENOUS PCO2 48.6 mmHg (38-52); VENOUS PH 7.375 (7.310-7.410)
[2023-01-21 15:42] LABS: ALBUMIN 3.6 g/dl (3.4-5.0); BLOOD UREA NITROGEN 12.6 mg/dL (7-18)
[2023-01-21 15:45] LABS: CREATININE 0.5 mg/dL (0.55-1.3)
[2023-01-21 15:46] LABS: TOT PROT 7.2 g/dl (6.4-8.2)
[2023-01-21 15:47] LABS: BILIRUBIN,TOTAL 0.5 mg/dL (0.2-1)
[2023-01-21 15:50] LABS: N-TERMINAL BNP 9.1 pg/ml (5-125)
[2023-01-21] MEDS ORDERED: ACETAMINOPHEN 1000 MG/100 ML BAG IVPB ONE (16:05)
[2023-01-21] MEDS ORDERED: ALBUTEROL SO4 0.083% IH SOL 2.5 MG/3 ML VIAL.NEB. NEB ONE ×2 (16:06→16:14)
[2023-01-21] MEDS ORDERED: ACETAMINOPHEN INJECTION 100 ML IVPB ONE (16:15)
[2023-01-21 17:15] LABS: BLOOD UREA NITROGEN 12.9 mg/dL (7-18); CALCIUM 8.7 mg/dL (8.5-10.1)
[2023-01-21 17:18] LABS: CREATININE 0.5 mg/dL (0.55-1.3)
[2023-01-22 01:34] VITALS: BMI 34.5
[2023-01-22 08:54] LABS: BASO % 0.2 % (0-2.0); HEMATOCRIT 36.1 % (32.4-45.2); LYMPH % 12.5 % (8-40); MCH 29.7 pg (25.7-33.7); MCHC 33.2 g/dl (32.0-36.0); MEAN CELL VOLUME 89.4 fl (80-96); MEAN PLT VOLUME 8.9 fl (7.5-11.1); MONO % 6.7 % (3.8-10.2); NEUT % 80.6 % (42.8-82.8); PLATELET COUNT 228 10^3/uL (134-434); RBC 4.04 M/mm3 (3.60-5.2); WHITE BLOOD COUNT 5.2 K/mm3 (4.0-10.0)
[2023-01-22 09:20] LABS: INR 0.98 (0.83-1.09); PROTHROMBIN TIME (PATIENT) 11.4 SEC (9.7-13.0)
[2023-01-22 09:30] LABS: ALBUMIN 3.8 g/dl (3.4-5.0); BLOOD UREA NITROGEN 10.2 mg/dL (7-18); CALCIUM 9.2 mg/dL (8.5-10.1); MAGNESIUM 2.2 mg/dL (1.8-2.4)
[2023-01-22 09:33] LABS: CREATININE 0.4 mg/dL (0.55-1.3)
[2023-01-22 09:34] LABS: PHOSPHOROUS 3.2 mg/dL (2.5-4.9)
[2023-01-22 09:35] LABS: BILIRUBIN,TOTAL 0.3 mg/dL (0.2-1); TOT PROT 6.9 g/dl (6.4-8.2)
[2023-01-22] MEDS: ALBUTEROL SO4 0.083% IH SOL 2.5 MG/3 ML VIAL.NEB. NEB PRN ×2 (10:24→14:40)
[2023-01-22] MEDS: ASPIRIN COATED 81 MG TABLET.EC PO SCH (10:39)
[2023-01-22] MEDS: DULoxetine HCL 30 MG CAPSULE.DR PO SCH (10:39)
[2023-01-22] MEDS: LISINOPRIL 10 MG TABLET PO SCH (10:40)
[2023-01-22] MEDS: CLOPIDOGREL BISULFATE 75 MG TABLET (FP) PO SCH (10:40)
[2023-01-22] MEDS: methylPREDNISolone NA SUCC 40 MG/1 ML VIAL IVPUSH SCH (10:40)
[2023-01-22] MEDS: PANTOPRAZOLE 40 MG TABLET PO SCH (10:40)
[2023-01-22] MEDS: ENOXAPARIN NA (PORCINE) 40 MG/0.4 ML DISP.SYRIN SQ SCH (11:12)
[2023-01-22] MEDS: guaiFENesin 200 MG/10 ML 10 ML UNIT-DOSE CUPS PO PRN (12:55)
[2023-01-22] MEDS ORDERED: AZITHROMYCIN IVPB 500 MG in DEXTROSE 5%-WATER - 250 ML IVPB SCH (13:00)
[2023-01-22] MEDS: NICOTINE 14 MG/24 HOURS TOPICAL PATCH TD SCH (13:15)
[2023-01-22] MEDS: ROSUVASTATIN CA 10 MG TABLET PO SCH ×2 (21:14)
[2023-01-23] MEDS: ALBUTEROL SO4 0.083% IH SOL 2.5 MG/3 ML VIAL.NEB. NEB PRN (09:27)
[2023-01-23] MEDS: AZITHROMYCIN IVPB 500 MG/250 ML BAG IVPB SCH (09:41)
[2023-01-23] MEDS: ENOXAPARIN NA (PORCINE) 40 MG/0.4 ML DISP.SYRIN SQ SCH (09:42)
[2023-01-23] MEDS: NICOTINE 14 MG/24 HOURS TOPICAL PATCH TD SCH (09:42)
[2023-01-23] MEDS: guaiFENesin 200 MG/10 ML 10 ML UNIT-DOSE CUPS PO PRN (09:43)
[2023-01-23] MEDS: DULoxetine HCL 30 MG CAPSULE.DR PO SCH (09:44)
[2023-01-23] MEDS: PANTOPRAZOLE 40 MG TABLET PO SCH (09:44)
[2023-01-23] MEDS: CLOPIDOGREL BISULFATE 75 MG TABLET (FP) PO SCH (09:44)
[2023-01-23] MEDS: LISINOPRIL 10 MG TABLET PO SCH (09:44)
[2023-01-23] MEDS: ASPIRIN COATED 81 MG TABLET.EC PO SCH (09:44)
[2023-01-23] MEDS: methylPREDNISolone NA SUCC 40 MG/1 ML VIAL IVPUSH SCH (09:45)
[2023-01-23] MEDS ORDERED: ACETAMINOPHEN 325 MG TABLET (FP) PO PRN (10:17)
[2023-01-23] MEDS: ROSUVASTATIN CA 10 MG TABLET PO SCH ×2 (21:12→22:00)
[2023-01-24] MEDS: ALBUTEROL SO4 0.083% IH SOL 2.5 MG/3 ML VIAL.NEB. NEB PRN (09:55)
[2023-01-24] MEDS: ENOXAPARIN NA (PORCINE) 40 MG/0.4 ML DISP.SYRIN SQ SCH (10:22)
[2023-01-24] MEDS: LISINOPRIL 10 MG TABLET PO SCH (10:23)
[2023-01-24] MEDS: methylPREDNISolone NA SUCC 40 MG/1 ML VIAL IVPUSH SCH (10:23)
[2023-01-24] MEDS: ASPIRIN COATED 81 MG TABLET.EC PO SCH (10:23)
[2023-01-24] MEDS: DULoxetine HCL 30 MG CAPSULE.DR PO SCH (10:23)
[2023-01-24] MEDS: PANTOPRAZOLE 40 MG TABLET PO SCH (10:23)
[2023-01-24] MEDS: CLOPIDOGREL BISULFATE 75 MG TABLET (FP) PO SCH (10:23)
[2023-01-24] MEDS: NICOTINE 14 MG/24 HOURS TOPICAL PATCH TD SCH (10:23)
[2023-01-24] MEDS: AZITHROMYCIN IVPB 500 MG/250 ML BAG IVPB SCH (10:24)
[2023-01-24 10:26] VITALS: PULSE 120
[2023-01-24 11:22] VITALS: RESP 20
[2023-01-24 15:17] VITALS: BP 118/78; TEMP 97.7
== END 2023-01-24 16:00 | disposition home or self-care (01) ==
LOC: JER 12:14 → JERBED 16:07 → J7W 21:51
PROVIDERS: ADMIT Internal Medicine; ATTEND Internal Medicine
PROC: 3E033NZ Introduction of Analgesics, Hypnotics, Sedatives into Peripheral Vein, Percutaneous Approach (ICD-10-PCS; principal; 2023-01-21)
PROC: 3E0F7GC Introduction of Other Therapeutic Substance into Respiratory Tract, Via Natural or Artificial Opening (ICD-10-PCS; 2023-01-21)
PROC: 3E03329 Introduction of Other Anti-infective into Peripheral Vein, Percutaneous Approach (ICD-10-PCS; 2023-01-21)
PROC: 3E023GC Introduction of Other Therapeutic Substance into Muscle, Percutaneous Approach (ICD-10-PCS; 2023-01-21)
PROC: 3E03329 Introduction of Other Anti-infective into Peripheral Vein, Percutaneous Approach (ICD-10-PCS; 2023-01-21)
DX: J44.1 Chronic obstructive pulmonary disease with (acute) exacerbation (principal); Z95.5 Presence of coronary angioplasty implant and graft; H54.60 Unqualified visual loss, one eye, unspecified; N20.0 Calculus of kidney; I69.998 Other sequelae following unspecified cerebrovascular disease; G89.29 Other chronic pain; M54.9 Dorsalgia, unspecified; E78.5 Hyperlipidemia, unspecified; I10 Essential (primary) hypertension; R09.89 Other specified symptoms and signs involving the circulatory and respiratory systems; R06.02 Shortness of breath; R09.02 Hypoxemia; E66.01 Morbid (severe) obesity due to excess calories; Z68.34 Body mass index [BMI] 34.0-34.9, adult; F17.210 Nicotine dependence, cigarettes, uncomplicated
CPT/HCPCS: 0241U-QW; 36415; 71046-TC-FY; 80048; 80053; 82803; 83735; 83880; 84100; 84484; 85025; 85379; 85610; 85730; 86850; 86900; 86901; 93005; 93010; 94640; 94761; 96365; 96367; 96372; 96374; 96375; 99285-25; G0378; J1100

== ENCOUNTER 2023-01-24 20:25 | Emergency (ER) | payer OTHER ==
[2023-01-24 20:41] VITALS: BMI 34.5
[2023-01-24] MEDS ORDERED: ACETAMINOPHEN 500 MG TABLET (FP) PO ONE (21:26)
[2023-01-24] MEDS ORDERED: ALBUTEROL SO4 2.5/IPRATROPIUM 0.5 INH SOL 3 ML VIAL.NEB. NEB ONE ×2 (21:26→21:45)
[2023-01-24] MEDS ORDERED: ACETAMINOPHEN 500 MG TABLET (FP) ONE (21:49)
[2023-01-25 11:50] VITALS: BP 111/76; PULSE 92; RESP 18; TEMP 98.6
== END 2023-01-25 11:50 | disposition home or self-care (01) ==
LOC: JER 20:25
PROC: 3E0F7GC Introduction of Other Therapeutic Substance into Respiratory Tract, Via Natural or Artificial Opening (ICD-10-PCS; principal; 2023-01-24)
DX: J44.1 Chronic obstructive pulmonary disease with (acute) exacerbation (principal); J96.01 Acute respiratory failure with hypoxia
CPT/HCPCS: 94640; 99283-25